=== PATIENT | male | born 1970 | race Caucasian/White ===

== ENCOUNTER 2024-06-26 00:21 | Observation (INO) ==
--- NOTE | 2024-06-26 00:21 | Emergency Department Note ---
History of Present Illness General Chief complaint: Heart Alert Stated complaint: HEART ALERT Source: patient, EMS (I did talk to EMS and gave ALS medical command prior to arrival), RN notes reviewed and old records reviewed (Old medical records were attempted to be reviewed but there are no old records at this hospital. Nurse's notes were reviewed and I agree with.) Mode of arrival: EMS Limitations: no limitations History of Present Illness Patient is a 53-year-old male with a history of cardiac disease, comes in after chest pain and nausea. He did eat a pepperoni pizza earlier. He is brought in by EMS they were concerned based on his cardiac history and his EKG changes that he was having a STEMI. They called in and talk to me and he does have ST segment elevations laterally with some reciprocal changes anteriorly. I did call the heart alert and saw the patient immediately upon arrival. The patient says his chest pain is starting to get a little bit better that he given fentanyl prior to arrival and he seems a little sleepy initially. The nausea seems to be better he is mildly short of breath there is no radiation to the back. No fall or trauma or injury he is a diabetic and his blood sugar was in the 300s in the ambulance. No focal numbness or weakness. No fall or trauma. Home Medications Medication Instructions Recorded Confirmed Type Unobtainable 06/26/24 06/26/24 History Allergies Allergy/AdvReac Type Severity Reaction Status Date / Time No Known Drug Allergies Allergy na Verified 06/26/24 03:03 Past Med/Surg History Problem List (Updated 06/26/24 @ 05:02 by Mao Rodriguez MD) Diabetes (Acute) Nausea (Acute) Hyperglycemia (Acute) Lumbar degenerative disc disease Memory loss Blindness of right eye Peripheral neuropathy Morbid obesity with BMI of 45.0-49.9, adult (Acute) Insulin-requiring or dependent type II diabetes mellitus Hyperlipidemia History of coronary artery stent placement (Acute) CAD in [place] artery STEMI (ST elevation myocardial infarction) (Acute) Social History Smoking Status: Former smoker Hx Alcohol Use: No Hx Substance Use: No Preferred Language: Cypriot Communication Ability: Effective Special Tax Auditor Required: No Beliefs That Will Affect Care: None Current Living Situation: Alone Other Information That Helps Us Care for You: No Feels Safe at Home: Yes Safety Concerns: Feels Safe At This Time Assistive Devices: Denture - Upper, Denture - Lower and Scooter/Electric Scooter Review of Systems A total of 10 systems reviewed and were otherwise negative Physical Exam Vital Signs Vital Signs - 24 hr 06/26/24 00:24 06/26/24 00:26 06/26/24 00:29 Temperature 36.8 C Temperature Source Oral Pulse Rate 100 H 99 H Respiratory Rate 17 Respiratory Effort / Characteristics Non-Labored Spontaneous Respiratory Depth Normal Respiratory Pattern Regular Blood Pressure 130/93 Blood Pressure Mean 105 Pulse Oximetry 85 L 85 L Oxygen Delivery Method Room Air Room Air Nasal Cannula Oxygen Flow Rate 0 Sepsis Recent Fever Within 48 Hours No Sepsis New/Unexplained Change in Mental Status N/A Sepsis Action Taken by Nursing No Action Required Oxygen Flow Rate - Titration 5 Pulse Oximetry Post Tiitration 97 General: Well developed well nourished in no acute distress, breathing comfortably on room air. Normal speech HEENT: Normal cephalic atraumatic. Pupils are equal round and reactive to light. Extraocular movements are intact. Oropharynx is pink with moist mucous membranes. No swelling of the mouth lips or tongue. Neck: Supple with a midline trachea. No meningeal signs or stiffness, no JVD or bruits. No Stridor. Chest: Clear to auscultation bilaterally. No wheezes or rhonchi. No increased work of breathing. Heart: Regular rate and rhythm without murmurs or gallops. Abdomen: Soft nontender, nondistended without rebound guarding or rigidity. Extremities: No cyanosis clubbing or edema. No calf tenderness or assymetry Spine/Back. Non tender to palpation. No CVA tenderness Skin: Good turgor without rashes. Neurologic exam: Cranial nerves two through 12 are intact. Motor and sensation are intact and symmetrical throughout. Course Administered Medications Discontinued Medications Clopidogrel Bisulfate (Clopidogrel Bisulfate 300 Mg Tab) Confirm Administered Dose 600 mg .ROUTE .STK-MED ONE Stop: 06/26/24 01:36 Last Admin: 06/26/24 01:40 Dose: 600 mg Documented By: RAMIREZ Fentanyl Citrate (Fentanyl Citrate Pf 100 Mcg/2 Ml Vial) Confirm Administered Dose 100 mcg .ROUTE .STK-MED ONE Stop: 06/26/24 00:21 Last Increment: 06/26/24 01:34 Dose: 25 mcg Documented By: RAMIREZ Heparin Sodium (Porcine) (Heparin (Porcine) 1000 Unit/Ml 10 Ml (Cooling Machine Operator Use Only)) Confirm Administered Dose 10,000 units .ROUTE .STK-MED ONE Stop: 06/26/24 00:21 Last Admin: 06/26/24 01:01 Dose: 8,000 units Documented By: RAMIREZ Heparin Sodium (Porcine) (Heparin (Porcine) 1000 Unit/Ml 10 Ml (Cooling Machine Operator Use Only)) Confirm Administered Dose 10,000 units .ROUTE .STK-MED ONE Stop: 06/26/24 01:09 Last Admin: 06/26/24 01:41 Dose: 4,000 units Documented By: RAMIREZ Heparin Sodium/Sodium Chloride (Heparin In Nss Infusion 1000 Unit/500 Ml (2 U/Ml) Bag) Confirm Administered Dose 3,000 units IV .STK-MED ONE Stop: 06/26/24 00:22 Last Admin: 06/26/24 01:03 Dose: 3,000 units Documented By: JL Acetaminophen (Ofirmev) 1,000 mg in 100 mls @ 400 mls/hr IV NOW STA Stop: 06/26/24 03:19 Last Infusion: 06/26/24 03:51 Dose: Infused Documented By: Admin: 06/26/24 03:30 Dose: 400 mls/hr Documented By: SUSANA Insulin Aspart (Insulin Aspart Per Unit Charge) 6 units SC NOW STA Stop: 06/26/24 02:22 Last Admin: 06/26/24 03:30 Dose: 6 units Documented By: JUDIT Co-signed By: SUSANNE Iodixanol (Iodixanol (Visipaque) 320 Mg/Ml 100ml) Confirm Administered Dose 1 ml IV .STK-MED ONE Stop: 06/26/24 00:22 Last Admin: 06/26/24 02:57 Dose: Not Given Documented By: SUSANA Ioversol (Optiray 350) Confirm Administered Dose 1 ml .ROUTE .STK-MED ONE Stop: 06/26/24 00:22 Last Admin: 06/26/24 01:39 Dose: 130 ml Documented By: JL Midazolam HCl (Midazolam Hcl 1 Mg/Ml 2ml Vial) Confirm Administered Dose 2 mg .ROUTE .STK-MED ONE Stop: 06/26/24 00:21 Last Increment: 06/26/24 01:35 Dose: 1 mg Documented By: KMS Miscellaneous Information (Patient's Allergy Info Needs Entered) 1 each N/A NOW STA Stop: 06/26/24 02:02 Last Admin: 06/26/24 03:07 Dose: 1 each Documented By: SUSANA Nicardipine HCl (Nicardipine Hcl Inj 2.5 Mg/Ml 10 Ml Amp) Confirm Administered Dose 25 mg .ROUTE .STK-MED ONE Stop: 06/26/24 00:21 Last Admin: 06/26/24 01:02 Dose: 25 mg Documented By: JL Nitroglycerin/Dextrose (Nitroglycerin/D5w 100mcg/Ml 20ml Syr) Confirm Administered Dose 2,000 mcg .ROUTE .STK-MED ONE Stop: 06/26/24 00:22 Last Admin: 06/26/24 01:04 Dose: 2,000 mcg Documented By: JL Ticagrelor (Ticagrelor 90 Mg Tab) Confirm Administered Dose 180 mg .ROUTE .STK- MED ONE Stop: 06/26/24 01:21 Last Admin: 06/26/24 02:57 Dose: Not Given Documented By: SUSANA Critical Care Time Critical Care Time: Yes Total Critical Care Time: 30 Due to the patient's chest pain, prehospital concern for STEMI with multiple EKGs done on route, discussion with paramedics as well as cardiology and the patient about his care and expedited care to get him to the Cooling Machine Operator for emergent angioplasty, I have personally spent greater than 30 minutes of critical care time in the direct management of this patient. This includes bedside care, interpretation of diagnostic studies, and testing, discussion with consultants, patient, and family members, and other required patient management activities. This 30 minutes is in excess of all separately billable procedures. Medical Decision Making Differential Diagnosis Acute coronary syndrome, arrhythmia, GI illness, infection, dissection, electrolyte or metabolic abnormality, anemia Medical Records Attestation: I reviewed the patient's medical records. Home Medications Current Medication List: was personally reviewed by me Laboratory Data Attestation: I reviewed the patient's lab results. 06/26/24 00:32 06/26/24 00:32 Lab Results 06/26/24 06/26/24 06/26/24 Range/Units 00:32 00:35 01:16 WBC 12.27 H (4.8-10.8) K/ul RBC 5.25 (4.70-6.10) M/uL Hgb 15.4 (14.0-18.0) g/dl POC Hgb 15.6 (14.0-18.0) g/dl Hct 45.1 (42.0-52.0) % POC Hct 46 (42-52) % MCV 85.9 (80.0-100.0) fL MCH 29.3 (25.0-34.0) pg MCHC 34.1 (32.0-36.0) g/dL RDW Std Deviation 40.3 (36.4-46.3) fL RDW Coeff of Aminata 13.0 (11.5-14.5) % Plt Count 259 (130-400) K/uL MPV 11.3 (9.4-12.4) fL Immature Gran % (Auto) 0.7 % Neut % (Auto) 71.9 % Lymph % (Auto) 17.8 % [place] % (Auto) 7.7 % Eos % (Auto) 1.5 % Baso % (Auto) 0.4 % Neut # (Auto) 8.81 H (1.40-6.50) K/uL Lymph # (Auto) 2.19 (1.20-3.40) K/uL [place] # (Auto) 0.95 H (0.11-0.59) K/uL Eos # (Auto) 0.19 (0.00-0.50) K/uL Baso # (Auto) 0.05 (0.00-0.20) K/uL Immature Gran # (Auto) 0.08 (0.01-0.20) K/uL Activ Coag Time Kaolin 269 H (94-140) SECONDS POC Sodium 135 (135-144) mmol/L Sodium 134 L (136-145) mmol/L POC Potassium 3.9 (3.3-5.0) mmol/L Potassium 4.0 (3.5-5.1) mmol/L POC Chloride 93 L (101-112) mmol/L Chloride 97 L (98-107) mmol/L Carbon Dioxide 30 (21-32) mmol/L POC Total CO2 29 (24-31) mmol/L Anion Gap 7 (3-11) POC Anion Gap 18.0 (16-25) mmol/L POC BUN 9 (7-18) mg/dl BUN 10 (6-23) mg/dl Creatinine 1.17 (0.6-1.4) mg/dl POC Creatinine 1.2 (0.6-1.3) mg/dl Est Cr Clr Drug Dosing 102.8 ml/min eGFR 75.01 BUN/Creatinine Ratio 8.5 L (10-20) Glucose 318 H* (70-99(Fasting)) mg/dl POC Glucose (other) 318 H (70-99) mg/dl Calcium 8.6 (8.6-10.3) mg/dl POC Ioniz Calcium Tami 1.11 L (1.12-1.32) mmol/l Total Bilirubin 0.3 (0.2-1.0) mg/dl AST 19 (13-39) U/L ALT 15 (7-52) U/L Alkaline Phosphatase 126 H (34-104) U/L Troponin I High Sens 108.4 H* (0-20) pg/ml Total Protein 6.3 (6.0-8.3) gm/dl Albumin 3.3 L (3.4-5.0) gm/dl Globulin 3.0 (2.5-4.0) gm/dl Albumin/Globulin Ratio 1.1 (0.9-2) Lipase 27 (11-82) U/L SARS-CoV-2, RNA, NAAT NEGATIVE (NEGATIVE) Imaging Data Attestation: I personally reviewed and interpreted this imaging study as follows: My Impression: Chest x-raycardiomegaly. No focal infiltrate. He will be difficult to rule out a mild congestive component. ECG Data Attestation: I personally reviewed and interpreted this ECG as follows: Indication: + chest pain Rate (beats per minute): 70 Rhythm: + normal sinus ECG Intervals/blocks: + Normal QRS, + Normal QT and + Normal [place] ECG [place]: + Normal ECG ST segments: + ST depression (Anterior) and + ST elevation ECG Findings: no PACs or no PVCs Comparison ECG Date: from (Prehospital EKG) Change: no significant change MDM Narrative This Patient comes in with chest pain based on EKG changes and history a heart alert was called prior to arrival. He arrived in room B1. I saw him immediately upon arrival we repeated the EKG here as well as labs. He appears in no respiratory distress. They did 3 EKGs en route which I looked at and show ST segment elevation laterally with reciprocal changes. Upon arrival he was a little sleepy as they just given 100 micrograms of IV fentanyl but is in no respiratory distress. EKG here shows similar changes. I-STAT was obtained and the heart alert had been called prior to arrival so Dr. Arredondo had promptly arrived shortly after the patient got here. He is going to take him to the [facility]ing Machine Operator for intervention for STEMI. Additionally his blood sugar was in the 300s on the i-STAT however he is not acidotic. I have also consulted Dr. Colindres as [facility]. Continuous cardiac monitoring: Orders placed in EMR for continuous cardiac monitoring call upon my evaluation normal sinus rhythm rate of [address] segment elevation seen on the lateral leads Impression & Plan STEMI (ST elevation myocardial infarction), History of coronary artery stent placement, Morbid obesity with BMI of 45.0-49.9, adult, Hyperglycemia, Nausea, Diabetes Discharge Plan Visit Data Chief Complaint: Heart Alert Stated Complaint: HEART ALERT ED Provider: Mao Rodriguez Discharge Problem: STEMI (ST elevation myocardial infarction), History of coronary artery stent placement, Morbid obesity with BMI of 45.0-49.9, adult, Hyperglycemia, Nausea, Diabetes Discharge Instructions Interventions: ED Discharge Assessment Last Done: 06/26/24 00:35 Discharge Problem: STEMI (ST elevation myocardial infarction) Qualifiers: Involved coronary artery: unspecified coronary artery Qualified Code(s): I21.3 - ST elevation (STEMI) myocardial infarction of unspecified site Diabetes Qualifiers: Diabetes mellitus type: type 2 Diabetes mellitus correction insulin use: u nspecified correction insulin use status Diabetes mellitus complication status: w [facility] complication Qualified Code(s): E11.9 - Type 2 diabetes mellitus without complications
--- NOTE | 2024-06-26 00:35 | Cardiac Catheterization ---
[facility] Data: Claims Representative Cardiac Status Clinical evaluation leading to the procedure CAD Presenation: STEMI Anginal Classification: CCS IV Diagnostic Physicians Name: Weston Arredondo MD Closure Device Recommendations: PCI without planned CABG Cardiac Cath Procedure Full Procedure Date June 26, 2024 Pre-Procedure Diagnosis Pre-Procedure Diagnosis: STEMI AUC Score AUC Score: 9 Post-Procedure Diagnosis Post-Procedure Diagnosis: Severe CAD, Successful PCI and Elevated Intracardiac Pressures Procedure(s) Performed Procedure(s) Performed: Coronary Angiography, Left Heart Cath and Drug Eluting Stent Wirer Street Light Weston Arredondo MD [id number] Analyst(s) Dorcas Estimated Blood Loss Estimated Blood Loss: 10 Medication(s) Medication(s): Clopidogrel, Fentanyl, Heparin, Lidocaine 1%, Nicardipine, Nitroglycerin and Versed Summary of Findings Indication: STEMI/Heart Alert Access: 6 Fr slender right radial artery Catheters: EBU 3.5 guide, diagnostic JR4 Findings: LM -normal caliber, no significant disease LAD -medium caliber, 20-30% ostial, diffuse 30 mid segment disease with focal 50% stenosis after third septal. Distal vessel without significant disease and wraps around apex. Ostial/proximal first diagonal stent acutely occluded. Circumflex -medium caliber, 30% ostial stenosis, proximal to mid stent widely patent, stent into large OM 3 widely patent. Distal AV groove circumflex without significant disease. RCA -dominant, large caliber, mid segment luminal regularities, PDA widely patent. 40% stenosis in right posterior AV branch right after takeoff of PDA. Right PLB with 60-70% proximal stenosis LVEDP -19 -- PCI -- Antithrombotic therapy: Heparin, clopidogrel Procedure: Left main cannulated with EBU 3.5 guide Finish Patcher 50 wire passed across lesion into distal vessel [place] blue wire passed into distal LAD Proximal D1 stent occlusion l dilated with 2.0 compliant balloon Unable to pass 2.5 NC balloon into stent. Eventually stent to rewired with [place] blue, commuter pilot 50 placed to distal LAD. Prior stent further dilated with 2.5 NC. Residual moderate stenosis in proximal aspect of stent. New TREE (2.25 x 23 mm Xience) placed from diagonal ostium across entire length of prior stent Stent post-dilated with 2.5 noncompliant balloon IC vasodilators administered for spasm Post procedure NEREYDA 3 flow, stent well expanded with minimal residual stenosis and no apparent cardiac complications. Arterial Closure: TR band Summary: 1. Lateral STEMI/proximal D1 stent thrombosis with 100% occlusion 2. Multivessel non-culprit coronary artery disease -40% R-PAV, 60-70% R-PLB -30% ostial circumflex, proximal/mid circumflex stents extending into OM 3 widely patent Mild diffuse mid LAD with focal 50% stenosis 3. Mildly elevated intracardiac filling pressure 4. Successful PCI of proximal 1st diagonal stent thrombosis with new overlapping TREE (2.25 x 23 mm Xience; postdilated with 2.5 NC). Recommendations: Admit to PCU for continued monitoring Loaded with clopidogrel 600 mg in Claims Representative Continue dual-antiplatelet therapy for at least 1 year. Likely extended in the setting of stent thrombosis/overlapping stents. Trend troponins until peak, Check Echo Uptitrate beta-whit/FRANCESCO as BP allows High-dose statin Consult cardiac Rehab Medical management of residual CAD. Hemodynamics Rest Ao:: 124/81/99 Final Ao: 125/81/100 LV: 120/19 Recommendations Recommendations: PCI without planned CABG Radiation Exposure (mGy) 3890 Contrast (mls) 130 Anesthesia Moderate [id number] Procedural Complication(s) None Disposition PCU I attest to the content of the Intraoperative Record and any orders documented therein. Any exceptions are noted below. [facility] Card Cath Procedure Codes Cardiac Catheterization Procedure 1: Cardiovascular Cath Procedures: 81553 Coronaries and LHC (+/-LV) Moderate Sedation Procedure 1: Sedation/Anesthesia: 93484 Mod Sedation by the same physician;Init15 Min Child Age 5 & Up Procedure 2: Sedation/Anesthesia: 72464 Mod Sedation by the same physician; Ea [id number] Minutes Stenting Procedure 1: Cardiovascular Stent Procedures: 01411 Perc transluminal revascularization of acute sub/total occl, aMI PG Care Time/CCT Total # of Minutes Spent Total Time Spent with Patient: Total time spent is greater than 50% in coordination of care (as documented) at patient's floor/unit and/or counseling patient:
--- NOTE | 2024-06-26 00:35 | Pre Anesthesia Assessment ---
Date of Service June 26, 2024 Pre Sedation Assessment Vital Signs Temp Pulse Resp BP Pulse Ox O2 Del Method O2 Flow Rate 06/26/24 00:29 85 L Room Air, Nasal Cannula 0 06/26/24 00:26 99 H 06/26/24 00:24 98.2 F 100 H 17 130/93 85 L Room Air Cardiovascular + regular rate Respiratory + respiratory effort normal Pre-Sedation Airway Assessment Smoking Status: Never smoker Hx Sleep Apnea: Yes Hx Difficult Intubation: No Short, Thick Neck: Yes Thyromental Distance: < 3.5 Finger Breadths Oral Cavity: + Dental Abnormalities Mallampati Class: III ASA: ASA4 Procedure Planning Contraindications for Sedation: none Current Medications Reviewed: Yes Notes The planned sedation has been discussed with the patient. Informed Consent was obtained. I have identified the patient, determined the appropriateness of sedation and have assessed the patient immediately prior to the procedure. All medicine(s) and interventions are by my order.
--- NOTE | 2024-06-26 00:41 | Cardiology Consultation ---
Date of Consultation June 26, 2024 Assessment & Plan (1) STEMI (ST elevation myocardial infarction): Plan Presentation consistent with lateral STEMI and recommend proceeding with emergent cardiac catheterization and likely primary PCI. No apparent contraindications to procedure. Discussed risks, benefits, alternatives of procedure with patient and they are willing to proceed. Further recommendations pending findings of coronary angiography. History of Present Illness History of Present Illness 53-year-old man here with acute chest pain and ECG concerning for acute GA. Patient seen emergently in the ED after heart alert en route. Patient reports history of coronary artery disease with prior placement of 4 stents in the setting of exertional dyspnea. Unsure when last stents were placed or where but thinks several years ago. Has a history of type 2 diabetes, morbid obesity. Non-smoker. Chest pain began 3 hours prior to arrival after eating a pepperoni sandwich. After sandwich became nauseated, followed by pain. Has never had pain like this before. ECG en route showed sinus rhythm with LVH and lateral ST elevations most notably in 1 and aVL. Given nitro and fentanyl by EMS. At time of arrival patient sleepy, reports minimal residual chest pain. Hemodynamically stable. EKG again showed lateral elevations. Home Medications Medication Instructions Recorded Confirmed Type Unobtainable 06/26/24 06/26/24 History Patient History Social History Smoking Status: Never smoker Preferred Language: Belarusian Feels Safe at Home: Yes Review of Systems Review of Systems: Other Not obtained in setting of emergent situation Physical Exam Physical Exam: General: sleepy, comfortable HEENT: Sclerae anicteric Lungs: Clear to auscultation anteriorly Cardiac: Regular rate and rhythm, no murmurs. Vascular: 2+ radial pulse, diminished RT DRILLING MANAGER pulse Abdomen: Soft, nontender Extremities: Well perfused, no peripheral edema. Multiple skin tears over legs Neuro: Nonfocal Results & Data Vital Signs (Past 12 Hours) Vital Signs Temp Pulse Resp BP Pulse Ox O2 Del Method O2 Flow Rate 06/26/24 00:29 85 L Room Air, Nasal Cannula 0 06/26/24 00:26 99 H 06/26/24 00:24 98.2 F 100 H 17 130/93 85 L Room Air PG Care Time/CCT Total # of Minutes Spent Total Time Spent with Patient: Total time spent is greater than 50% in coordination of care (as documented) at patient's floor/unit and/or counseling patient: Coding Level of Care Code 66235 ER DEPT VISIT MOD LVL 4 Diagnoses STEMI (ST elevation myocardial infarction) I21.3
[2024-06-26 00:47] LABS: iSTAT Creatinine 1.2 mg/dl (0.6-1.3); iSTAT Hemoglobin 15.6 g/dl (14.0-18.0); iSTAT Ionized Calcium 1.11 mmol/l (1.12-1.32); iSTAT Potassium 3.9 mmol/L (3.3-5.0)
[2024-06-26 00:58] LABS: Basophils # (auto) 0.05 K/uL (0.00-0.20); Basophils % (auto) 0.4 %; Eosinophils # (auto) 0.19 K/uL (0.00-0.50); Eosinophils % (auto) 1.5 %; Hematocrit (blood only) 45.1 % (42.0-52.0); Hemoglobin 15.4 g/dl (14.0-18.0); Immature Granulocytes # (auto) 0.08 K/uL (0.01-0.20); Immature Granulocytes % (auto) 0.7 %; Lymphocytes # (auto) 2.19 K/uL (1.20-3.40); Lymphocytes % (auto) 17.8 %; Mean Corpuscular Hemoglobin 29.3 pg (25.0-34.0); Mean Corpuscular Hgb Conc 34.1 g/dL (32.0-36.0); Mean Corpuscular Volume 85.9 fL (80.0-100.0); Mean Platelet Volume 11.3 fL (9.4-12.4); Monocytes # (auto) 0.95 K/uL (0.11-0.59); Monocytes % (auto) 7.7 %; Neutrophils # (auto) 8.81 K/uL (1.40-6.50); Neutrophils % (auto) 71.9 %; Platelet Count 259 K/uL (130-400); RDW Standard Deviation 40.3 fL (36.4-46.3); Red Blood Count 5.25 M/uL (4.70-6.10); White Blood Count 12.27 K/ul (4.8-10.8)
[2024-06-26] MEDS: HEPARIN (PORCINE) 1000 UNIT/ML 10 ML (CATH LAB USE ONLY) ONE ×2 (01:01→01:41)
[2024-06-26] MEDS: niCARdipine HCL INJ 2.5 MG/ML 10 ML AMP ONE (01:02)
[2024-06-26] MEDS: NITROGLYCERIN/D5W 100MCG/ML 20ML SYR ONE (01:04)
[2024-06-26 01:12] LABS: Albumin Globulin Ratio 1.1 (0.9-2); Albumin Level 3.3 gm/dl (3.4-5.0); BUN Creatinine Ratio 8.5 (10-20); Bilirubin,Total 0.3 mg/dl (0.2-1.0); Calcium 8.6 mg/dl (8.6-10.3); Creatinine Clr Calc Pharmacy 102.8 ml/min; Total Protein 6.3 gm/dl (6.0-8.3)
[2024-06-26 01:18] LABS: Troponin I High Sensitivity 108.4 pg/ml (0-20)
[2024-06-26] MEDS: fentaNYL citrate PF 100 MCG/2 ML VIAL ONE (01:34)
[2024-06-26] MEDS: MIDAZOLAM HCL 1 MG/ML 2ML VIAL ONE (01:35)
[2024-06-26] MEDS: OPTIRAY 350 ONE (01:39)
[2024-06-26] MEDS ORDERED: ONDANSETRON INJ 2 MG/ML 2 ML VIAL IV PRN (01:40)
[2024-06-26] MEDS: CLOPIDOGREL BISULFATE 300 MG TAB ONE (01:40)
[2024-06-26] MEDS ORDERED: DEXTROSE 50% 50 ML SYRINGE IV PRN (02:16)
[2024-06-26] MEDS ORDERED: GLUCAGON FOR INJ 1 MG VIAL SQ PRN (02:16)
[2024-06-26] MEDS ORDERED: GLUCOSE 40% GEL 15 GM TUBE PO PRN (02:16)
[2024-06-26] MEDS ORDERED: CARBOHYDRATES FOR HYPOGLYCEMIA PO PRN (02:16)
[2024-06-26] MEDS ORDERED: GLUCOSE 10 TAB/TUBE PO PRN (02:16)
--- NOTE | 2024-06-26 02:48 | History & Physical Report ---
Date of Service June 26, 2024 Assessment & Plan (1) STEMI (ST elevation myocardial infarction): (2) CAD in [place] artery: (3) History of coronary artery stent placement: (4) Hyperlipidemia: (5) Insulin-requiring or dependent type II diabetes mellitus: (6) Morbid obesity with BMI of 45.0-49.9, adult: (7) Peripheral neuropathy: (8) Blindness of right eye: (9) Memory loss: (10) Lumbar degenerative disc disease: Plan STEMI with elevated troponin/CAD/history of first diagonal stent/hypertension- Heart alert was called by the ED upon review of external EKG prior to arrival, which showed ST segment elevations in lateral leads Patient underwent emergent cardiac catheterization by Dr. Weston Arredondo, which revealed an occluded stent in the first diagonal, which was treated with 1 new overlapping stent, with resolution of symptoms. Patient then transferred to PCU telemetry on the following medications: Aspirin 81 mg every morning Clopidogrel 75 mg every morning, Atorvastatin 80 mg every morning Patient has previously been on medications for blood pressure, however, does not remember the names or dosages Patient does remember having a previous cardiac catheterization, however, does not remember when and what was done Hyperlipidemia- Patient empirically placed on atorvastatin 80 mg every morning Fasting lipid panel ordered for the a.m. Patient remembers that he was on a statin, but does not remember the name or the dose Diabetes mellitus- Change insulin glargine from 44 units subcu twice daily to 34 units subcu twice daily while in hospital. His last dose was at about 8:15 p.m. on 06/25 He does use Humalog for coverage, but does not use a firm scale Place on Accu-Cheks with NovoLog SSI Hemoglobin A1c is ordered Lumbar degenerative disc disease/history of lumbar surgery for slipped disc/peripheral neuropathy- Patient reports that he has been on gabapentin in the past, but it was discontinued for unknown reasons Morbid obesity- BMI 44.8 Will need to be addressed for ongoing health concern issues Memory loss- Patient has slow responses to most questions, and does not remember medications that he has been on other than the dosings of insulin glargine as noted Unknown if there is any element of cognitive impairment The emergency department at [facility] has been contacted by the [facility] emergency department. Unfortunately, there was no one there who can access his previous records, and there is reportedly someone to be there after 8 AM The emergency department there will need to be contacted, to obtain previous records Admission and Anticipated Discharge Date Admission Date: June 26, 2024 History of Present Illness Chief Complaint: The patient presented to the emergency department with the development of chest pain and nausea and occurred after eating pepperoni pizza earlier in the day. He was brought in by EMS, who called ahead to the emergency department due to concerns regarding his cardiac history, and abnormal EKG concerning for a STEMI. Heart alert was called in anticipation of his arrival, and upon arrival he was seen by emergency department personnel, and was taken quickly to the cardiac cath suite by Dr. Weston Arredondo. Primary Care Provider: NO PCP The patient is a 53-year-old male with a past medical history including CAD with history of coronary artery stent, hypertension, hyperlipidemia, diabetes mellitus on chronic insulin, GPN, morbid obesity, and memory loss issues. He presented to the emergency department with symptoms as noted above, laboratories ordered and chest x-ray performed, and was quickly taken to cardiac [employer] for assessment. He was noted to have occluded stent his first diagonal, and got 1 new overlapping stents, with resolution of pain symptoms. He was then sent to PCU telemetry, and admitted. The patient's HPI and ROS are somewhat limited due to memory loss issues, which appear to be chronic. Of note, the patient has reportedly been seen through the [facility] system at [facility], which had been contacted by [facility] emergency department, and there was verification that he had been seen at the hospital. There is no one available this evening to transfer records, however, they will need to be contacted after 8:00 in the morning, for transfer records. Medications the patient is aware of the dosing that he takes, is his insulin glargine, dose 44 units subcu twice daily. He does take Humalog, however, he does not use a routine scale for coverage. Home Medications Medication Instructions Recorded Confirmed Type Unobtainable 06/26/24 06/26/24 History Past Med/Surg History Problem List (Updated 06/26/24 @ 02:35 by Alirio Pinedo MD) Lumbar degenerative disc disease Memory loss Blindness of right eye Peripheral neuropathy Morbid obesity with BMI of 45.0-49.9, adult Insulin-requiring or dependent type II diabetes mellitus Hyperlipidemia History of coronary artery stent placement CAD in [place] artery STEMI (ST elevation myocardial infarction) Social History Smoking Status: Never smoker Preferred Language: Korean Feels Safe at Home: Yes Review of Systems Review of Systems: The patient denies chest pain after getting the new stent, palpitations, shortness of breath, dyspnea on exertion, lower extremity swelling, sore throat, fevers, chills, sweats, nausea, vomiting, diarrhea , constipation, abdominal pain, pelvic pain, blood in urine or stool, dysuria, urinary frequency or urgency, lightheadedness, dizziness, headache, memory loss, loss of consciousness, rash, abnormal bruising or bleeding, imbalance, focal or generalized weakness, numbness or tingling in arms or legs, generalized arthralgias or myalgias, back or neck pain, or night sweats. The review of systems is otherwise negative other than for that already noted above, and at least 10 systems have been reviewed. Physical Exam Physical Exam: The patient is awake, alert and oriented 3, well developed and well nourished, normocephalic and atraumatic, lying in bed and in no acute distress. HEENT--PERRL, EOMI, mucous membranes and oropharynx normal Neck--supple. No JVD. No bruits. Thyroid normal, trachea midline, no adenopathy. Heart--normal S1 and S2. No murmurs, rubs or gallops. Lungs--decreased breath sounds throughout. No respiratory distress, no accessory muscle use. Abdomen--normal bowel sounds and soft. Nontender. Nondistended. Mildly tympanitic. Extremities--No edema. Dermatologic--normal skin turgor, normal color Neurologic--cranial nerves II through XII grossly intact. Rheumatologic--normal range of motion. Psychiatric--normal affect. Results & Data Results & Data Vital Signs (Past 12 Hours) Vital Signs Temp Pulse Resp BP Pulse Ox O2 Del Method O2 Flow Rate 06/26/24 00:29 85 L Room Air, Nasal Cannula 0 06/26/24 00:26 99 H 06/26/24 00:24 36.8 C 100 H 17 130/93 85 L Room Air Laboratory Results Laboratory Results WBC 12.27 K/ul (4.8-10.8) H 06/26/24 00:32 RBC 5.25 M/uL (4.70-6.10) 06/26/24 00:32 Hgb 15.4 g/dl (14.0-18.0) 06/26/24 00:32 POC Hgb 15.6 g/dl (14.0-18.0) 06/26/24 00:35 Hct 45.1 % (42.0-52.0) 06/26/24 00:32 POC Hct 46 % (42-52) 06/26/24 00:35 MCV 85.9 fL (80.0-100.0) 06/26/24 00:32 MCH 29.3 pg (25.0-34.0) 06/26/24:32 MCHC 34.1 g/dL (32.0-36.0) 06/26/24 00:32 RDW Std Deviation 40.3 fL (36.4-46.3) 06/26/24 00: RDW Coeff of Aminata 13.0 % (11.5-14.5) 06/26/24 00:32 Plt Count 259 K/uL (130-400) 06/26/24 00:32 MPV 11.3 fL (9.4-12.4) 06/26/24 00:32 Immature Gran % (Auto) 0.7 % 06/26/24 00:32 Neut % (Auto) 71.9 % 06/26/24 00:32 Lymph % (Auto) 17.8 % 06/26/24 00:32 Beckham % (Auto) 7.7 % 06/26/24:32 Eos % (Auto) 1.5 % 06/26/24 00:32 Baso % (Auto) 0.4 % 06/26/24 00:32 Neut # (Auto) 8.81 K/uL (1.40-6.50) H 06/26/24 00:32 Lymph # (Auto) 2.19 K/uL (1.20-3.40) 06/26/24 00:32 Beckham # (Auto) 0.95 K/uL (0.11-0.59) H 06/26/24 00:32 Eos # (Auto) 0.19 K/uL (0.00-0.50) 06/26/24 00:32 Baso # (Auto) 0.05 K/uL (0.00-0.20) 06/26/24 00:32 Immature Gran # (Auto) 0.08 K/uL (0.01-0.20) 06/26/24 00:32 Activ Coag Time Kaolin 269 SECONDS (94-140) H 06/26/24 01:16 POC Sodium 135 mmol/L (135-144) 06/26/24 00:35 Sodium 134 mmol/L (136-145) L 06/26/24 00:32 POC Potassium 3.9 mmol/L (3.3-5.0) 06/26/24 00:35 Potassium 4.0 mmol/L (3.5-5.1) 06/26/24 00:32 POC Chloride 93 mmol/L (101-112) L 06/26/24 00:35 Chloride 97 mmol/L (98-107) L 06/26/24 00:32 Carbon Dioxide 30 mmol/L (21-32) 06/26/24 00:32 POC Total CO2 29 mmol/L (24-31) 06/26/24 00:35 Anion Gap 7 (3-11) 06/26/24 00:32 POC Anion Gap 18.0 mmol/L (16-25) 06/26/24 00:35 POC BUN 9 mg/dl (7-18) 06/26/24 00:35 BUN 10 mg/dl (6-23) 06/26/24 00:32 Creatinine 1.17 mg/dl (0.6-1.4) 06/26/24 00:32 POC Creatinine 1.2 mg/dl (0.6-1.3) 06/26/24 00:35 Est Cr Clr Drug Dosing 102.8 ml/min 06/26/24 00:32 eGFR 75.01 06/26/24 00:32 BUN/Creatinine Ratio 8.5 (10-20) L 06/26/24 00:32 Glucose 318 mg/dl (70-99(Fasting)) H* 06/26/24 00:32 POC Glucose 281 mg/dl (70-99) H 06/26/24 02:06 POC Glucose (other) 318 mg/dl (70-99) H 06/26/24 00:35 Calcium 8.6 mg/dl (8.6-10.3) 06/26/24 00:32 POC Ioniz Calcium Tami 1.11 mmol/l (1.12-1.32) L 06/26/24 00:35 Total Bilirubin 0.3 mg/dl (0.2-1.0) 06/26/24 00:32 AST 19 U/L (13-39) 06/26/24 00:32 ALT 15 U/L (7-52) 06/26/24 00:32 Alkaline Phosphatase 126 U/L (34-104) H 06/26/24 00:32 Troponin I High Sens 108.4 pg/ml (0-20) H* 06/26/24 00:32 Total Protein 6.3 gm/dl (6.0-8.3) 06/26/24 00:32 Albumin 3.3 gm/dl (3.4-5.0) L 06/26/24 00:32 Globulin 3.0 gm/dl (2.5-4.0) 06/26/24 00:32 Albumin/Globulin Ratio 1.1 (0.9-2) 06/26/24 00:32 Lipase 27 U/L (11-82) 06/26/24 00:32 SARS-CoV-2, RNA, NAAT NEGATIVE (NEGATIVE) 06/26/24 00:32 Code Status & VTE Plan Code Status Full code VTE Prophylaxis Plan VTE Prophylaxis will be ordered: Yes PG Care Time/CCT Total # of Minutes Spent Total Time Spent with Patient: Total time spent is greater than 50% in coordination of care (as documented) at patient's floor/unit and/or counseling patient: Coding Level of Care Code 42128 INT INP/OBS CARE 3/75MIN Diagnoses STEMI (ST elevation myocardial infarction) I21.3 CAD in [place] artery I25.10 History of coronary artery stent placement Z95.5 Hyperlipidemia E78.5 Insulin-requiring or dependent type II diabetes mellitus E11.9; Z79.4 Morbid obesity with BMI of 45.0-49.9, adult E66.01; Z68.42 Peripheral neuropathy G62.9 Blindness of right eye H54.40 Memory loss R41.3 Lumbar degenerative disc disease M51.369
[2024-06-26] MEDS: IODIXANOL (VISIPAQUE) 320 MG/ML 100ML IV ONE (02:57)
[2024-06-26] MEDS: TICAGRELOR 90 MG TAB ONE (02:57)
[2024-06-26] MEDS: Patient's ALLERGY Info needs ENTERED STA (03:07)
[2024-06-26] MEDS: ACETAMINOPHEN 1,000 MG/100 ML VIAL IV STA (03:30)
[2024-06-26] MEDS: INSULIN ASPART PER UNIT CHARGE SC STA (03:30)
--- NOTE | 2024-06-26 06:52 | XRay Report ---
SUPINE PORTABLE AP CHEST RADIOGRAPH CLINICAL HISTORY: Chest pain, nonspecific COMPARISON STUDY: No previous studies for comparison. FINDINGS: No pneumothorax or pleural effusion is identified on supine exam. There is no consolidation . Pulmonary vascular congestion is noted. There is mild enlargement of the cardiac silhouette. Promin ence of mediastinal contours is accentuated on supine exam. IMPRESSION: Cardiomegaly with pulmonary vascular congestion. ACT 112: Negative or not required by law. Electronically signed by: Martin Boyce M.D. 06/26/2024 6:50 AM
[2024-06-26] MEDS ORDERED: MoRPHine SULFATE 4 MG/ML 1 ML CARP\\VIAL IV PRN (07:33)
[2024-06-26] MEDS: NITROGLYCERIN SL 0.4 MG/TAB TAB SL PRN (07:47)
[2024-06-26 08:06] LABS: Basophils # (auto) 0.06 K/uL (0.00-0.20); Basophils % (auto) 0.6 %; Eosinophils # (auto) 0.12 K/uL (0.00-0.50); Eosinophils % (auto) 1.1 %; Hematocrit (blood only) 44.8 % (42.0-52.0); Hemoglobin 15.6 g/dl (14.0-18.0); Immature Granulocytes # (auto) 0.08 K/uL (0.01-0.20); Immature Granulocytes % (auto) 0.7 %; Mean Corpuscular Hemoglobin 29.8 pg (25.0-34.0); Mean Corpuscular Hgb Conc 34.8 g/dL (32.0-36.0); Mean Corpuscular Volume 85.5 fL (80.0-100.0); Mean Platelet Volume 11.1 fL (9.4-12.4); Monocytes # (auto) 0.86 K/uL (0.11-0.59); Monocytes % (auto) 7.9 %; Neutrophils # (auto) 7.12 K/uL (1.40-6.50); Neutrophils % (auto) 65.7 %; Platelet Count 254 K/uL (130-400); RDW Coefficient of Variation 13.1 % (11.5-14.5); RDW Standard Deviation 40.3 fL (36.4-46.3); Red Blood Count 5.24 M/uL (4.70-6.10); White Blood Count 10.84 K/ul (4.8-10.8)
[2024-06-26] MEDS: ATORVASTATIN 40 MG TAB PO SCH (08:14)
[2024-06-26] MEDS: PANTOprazole 40 MG TAB PO SCH (08:14)
[2024-06-26] MEDS: ASPIRIN 81 MG ECTAB PO SCH (08:14)
[2024-06-26] MEDS: INSULIN ASPART PER UNIT CHARGE SC SCH (08:19)
[2024-06-26] MEDS: LANTUS PER UNIT CHARGE SQ SCH (08:19)
[2024-06-26 08:25] LABS: BUN Creatinine Ratio 9.3 (10-20); Chol HDL Ratio 3.1 (0-5); Creatinine Clr Calc Pharmacy 107.9 ml/min; Potassium 4.4 mmol/L (3.5-5.1)
--- NOTE | 2024-06-26 10:09 | XCELERA ---
[id number]
[2024-06-26 10:20] LABS: Estimated Average Glucose 214 mg/dl; Hemoglobin A1C 9.1 % (4.5-5.6)
--- NOTE | 2024-06-26 11:13 | Electrocardiogram Report ---
Test Reason : Blood Pressure : */* mmHG Vent. Rate : 98 BPM Atrial Rate : 98 BPM P-R Int : 178 ms QRS Dur : 118 ms QT Int : 396 ms P-R-T Axes : 69 -73 59 degrees QTcB Int : 505 ms Normal sinus rhythm Left atrial enlargement Right bundle branch block Left anterior fascicular block Bifascicular block Minimal voltage criteria for LVH, may be normal variant ( R in aVL ) ST elevation consider lateral injury or acute infarct ACUTE [place] / STEMI Abnormal ECG No previous ECGs available Confirmed by Kishan Leal ([id number]) on 06/26/2024 11:13:04 AM Referred By: REFERRED SELF Confirmed By: Kishan Leal
--- NOTE | 2024-06-26 11:14 | Electrocardiogram Report ---
Test Reason : Blood Pressure : */* mmHG Vent. Rate : 86 BPM Atrial Rate : 86 BPM P-R Int : 186 ms QRS Dur : 106 ms QT Int : 402 ms P-R-T Axes : 68 -83 69 degrees QTcB Int : 481 ms Normal sinus rhythm Low voltage QRS Left anterior fascicular block Prolonged QT Abnormal ECG When compared with ECG of 26-Jun-2024 00:26, (unconfirmed) Significant changes have occurred Confirmed by Kishan Leal ([id number]) on 06/26/2024 11:13:37 AM Referred By: REFERRED SELF Confirmed By: Kishan Leal
--- NOTE | 2024-06-26 15:03 | Cardiology Progress Note ---
Date of Service June 26, 2024 Assessment & Plan (1) CAD in [place] artery: Plan: Post PCI with new TREE to first diagonal stent thrombosis 06/26/2024 Moderate to severe nonculprit disease (60% right PLB, 50% mid LAD, 30% ostial LCx, LCx into OM 3 stents patent) 2. Preserved LV functionanterolateral wall motion abnormality 3. Type 2 [id number] 9.1 4. Mildly dilated aortic root/ascending aorta (4.1 cm) 5. Hypertension Chest pain-free currently Electrically stable Preserved LV function on echo and no signs of heart failure on exam No access site complications Trend troponin until peak Continue DAPT with aspirin, clopidogrel Continue current statin Start losartan 25 mg daily Contacted his PCPs office to fax home meds Up walking in the halls today. If remains chest pain-free with ambulation and troponin downtrending okay with discharge late this afternoon or tomorrow morning Will arrange follow-up with cardiology in [place] in 2 weeks. Admission and Anticipated Discharge Date Admission Date: June 26, 2024 Subjective Feeling well this afternoon. Denies any chest pain currently. Primarily bothered by URI symptoms including runny nose/sneezing. Also reports some belching. Telemetry reviewedsinus rhythm, no events. Review of Systems Review of Systems: All systems reviewed & are unremarkable except as noted in HPI & below Physical Exam Physical Exam: General: Comfortable, sitting up edge of bed HEENT: Sclerae anicteric Lungs: Clear to auscultation bilaterally Cardiac: Regular rate and rhythm, no murmurs. Vascular: Right radial artery access site with no ecchymosis, hematoma. Distal pulse and sensation intact. Abdomen: Soft, nontender Extremities: Well perfused, no peripheral edema. Multiple skin tears over legs Neuro: Nonfocal Results & Data Vital Signs (Past 12 Hours) Vital Signs Temp Pulse Pulse Resp BP Pulse Ox O2 Del Method 06/26/24 11:41 97.9 F 92 H 18 149/78 H 95 Room Air 06/26/24 07:49 97.7 F 96 H 20 134/83 93 Room Air 06/26/24 07:30 Room Air 06/26/24 07:15 95 H PG Care Time/CCT Total # of Minutes Spent Total Time Spent with Patient: Total time spent is greater than 50% in coordination of care (as documented) at patient's floor/unit and/or counseling patient: Coding Level of Care Code 97727 SUB INP/OBS CARE 50MIN Diagnoses CAD in [place] artery I25.10
--- NOTE | 2024-06-26 15:44 | Hospitalist Progress Note ---
Date of Service June 26, 2024 Assessment & Plan (1) STEMI (ST elevation myocardial infarction): Plan: Presented with chest pain and nausea that occurred after eating pepperoni pizza earlier in the day. Heart alert was called by the ED upon review of external EKG prior to arrival, which showed ST segment elevations in lateral leads - Patient underwent emergent cardiac catheterization by Dr. Weston Arredondo, which revealed an occluded stent in the first diagonal, which was treated with 1 new overlapping stent, with resolution of symptoms - Echo revealed preserved LV function, EF 50-55% - Trend troponin until peak - Lipid panel WNL other than triglycerides borderline high - A1c elevated at 9.1% - follow-up with PCP on discharge for diabetic control - Follow-up outpatient with cardiology in 2 weeks after discharge - Continue DAPT with aspirin 81 mg and clopidogrel 75 mg daily - Continue atorvastatin 80 mg daily - Continue losartan 25 mg daily - Reviewed telemetry monitoring -- NSR, no events - If troponin downtrends and patient remains chest pain-free with ambulation, anticipate discharge 06/27/24 (2) Insulin-requiring or dependent type II diabetes mellitus: Plan: Change insulin glargine from 44 units subcu twice daily to 34 units subcu twice daily while in hospital. His last dose was at about 8:15 p.m. on 06/25 He does use Humalog for coverage, but does not use a firm scale Place on Accu-Cheks with NovoLog SSI Hemoglobin A1c 9.1% (3) Memory loss: Plan: Patient has slow responses to most questions, and does not remember medications that he has been on other than the dosings of insulin glargine as noted Unknown if there is any element of cognitive impairment Plan Nurse navigator has requested medical records from [facility] CODE STATUS: Full code Dispo: If troponin downtrends and patient remains chest pain-free with ambulation, anticipate discharge 06/27 Admission and Anticipated Discharge Date Admission Date: June 26, 2024 Subjective Patient seen and evaluated at bedside. He had reported 3/10 chest pain this morning, which resolved after sublingual nitro. He has 0/10 chest pain at the time my evaluation. He reports that he is tired today due to his disrupted sleep last night. He denies any chest pain, palpitations, shortness of breath, difficulty breathing, lightheadedness, dizziness. Reviewed telemetry monitoring, no events noted. No additional complaints or concerns at this time. Physical Exam Physical Exam: General: No acute distress, nondiaphoretic, well-developed, well-nourished. Morbid obesity with BMI of 44.8 Skin: Warm, dry, extremities well-perfused, no peripheral edema. Multiple skin tears noted on lower extremities. Cardiac: Regular rate and rhythm without murmurs gallops or rubs. Pulm: Clear to auscultation bilaterally without wheezes, rales or rhonchi. No respiratory distress. 95% on room air. Abdominal: Soft, nontender, nondistended. Bowel sounds present. Neuro: A&O x3. No focal neurological deficits. Results & Data Results & Data Vital Signs (Past 12 Hours) Vital Signs Temp Pulse Pulse Resp BP Pulse Ox O2 Del Method 06/26/24 11:41 97.9 F 92 H 18 149/78 H 95 Room Air 06/26/24 07:49 97.7 F 96 H 20 134/83 93 Room Air 06/26/24 07:30 Room Air 06/26/24 07:15 95 H Laboratory Results Reviewed CBC Reviewed CMP Reviewed lipid panel Diagnostic Findings Reviewed echocardiogram Interpretation summary 1. Normal LV size. Mild concentric LVH. 2. LVEF 50-55%. Mid to apical anterolateral moderate to severe hypokinesis. 3. Normal RV size and function. 4. No significant valvular pathology. 5. Mildly dilated aortic root/ascending aorta (4.1 cm). 6. No prior studies for comparison. PG Care Time/CCT Total # of Minutes Spent Total Time Spent with Patient: Total time spent is greater than 50% in coordination of care (as documented) at patient's floor/unit and/or counseling patient: Coding Level of Care Code 69067 SUB INP/OBS CARE 2/35MIN Diagnoses STEMI (ST elevation myocardial infarction) I21.3 Involved coronary artery: unspecified coronary artery Insulin-requiring or dependent type II diabetes mellitus E11.9; Z79.4 Memory loss R41.3 (1) STEMI (ST elevation myocardial infarction) Involved coronary artery: unspecified coronary artery Qualified Code(s): I2 1.3 - ST elevation (STEMI) myocardial infarction of unspecified site
[2024-06-26] MEDS: CLOPIDOGREL BISULFATE 75 MG TAB PO SCH (16:33)
[2024-06-26] MEDS: LOSARTAN POTASSIUM 25 MG TAB PO SCH (16:33)
[2024-06-26] MEDS: MELATONIN 3 MG TAB PO PRN (21:37)
[2024-06-27] MEDS: MoRPHine SULFATE 2 MG/ML CARP IV PRN (00:59)
[2024-06-27 08:02] VITALS: PULSE 83; RESP 16; TEMP 97.9; O2SAT 94
[2024-06-27 08:24] LABS: Basophils # (auto) 0.06 K/uL (0.00-0.20); Basophils % (auto) 0.6 %; Eosinophils # (auto) 0.24 K/uL (0.00-0.50); Eosinophils % (auto) 2.5 %; Hematocrit (blood only) 47.1 % (42.0-52.0); Hemoglobin 15.9 g/dl (14.0-18.0); Immature Granulocytes # (auto) 0.06 K/uL (0.01-0.20); Immature Granulocytes % (auto) 0.6 %; Lymphocytes # (auto) 2.33 K/uL (1.20-3.40); Mean Corpuscular Hemoglobin 29.4 pg (25.0-34.0); Mean Corpuscular Hgb Conc 33.8 g/dL (32.0-36.0); Mean Corpuscular Volume 87.2 fL (80.0-100.0); Mean Platelet Volume 11.3 fL (9.4-12.4); Monocytes # (auto) 0.84 K/uL (0.11-0.59); Monocytes % (auto) 8.6 %; Neutrophils # (auto) 6.19 K/uL (1.40-6.50); Neutrophils % (auto) 63.7 %; Platelet Count 248 K/uL (130-400); RDW Coefficient of Variation 13.1 % (11.5-14.5); White Blood Count 9.72 K/ul (4.8-10.8)
[2024-06-27 08:43] LABS: BUN Creatinine Ratio 6.7 (10-20); Calcium 8.7 mg/dl (8.6-10.3); Creatinine Clr Calc Pharmacy 108.7 ml/min
[2024-06-27 13:30] VITALS: BP 127/87
--- NOTE | 2024-06-27 13:34 | Discharge Summary ---
Discharge Summary Date of Service June 27, 2024 Principal Dx & Hospital Course #1 = Principal Diagnosis (1) STEMI (ST elevation myocardial infarction): Presented with chest pain and nausea that occurred after eating pepperbryce pizza earlier in the day. Heart alert was called by the ED upon review of external EKG prior to arrival, which showed ST segment elevations in lateral leads - Patient underwent emergent cardiac catheterization by Dr. Weston Arredondo, which revealed an occluded stent in the first diagonal, which was treated with 1 new overlapping stent, with resolution of symptoms - Echo revealed preserved LV function, EF 50-55% [place] [address], downtrended - Reviewed telemetry monitoring -- NSR, no events - Lipid panel WNL other than triglycerides borderline high - A1c elevated at 9.1% - follow-up with PCP on discharge - Follow-up outpatient with cardiology in 2 weeks after discharge - Continue DAPT with aspirin 81 mg and clopidogrel 75 mg daily - Continue atorvastatin 80 mg daily - Continue losartan 25 mg daily (2) Insulin-requiring or dependent type II diabetes mellitus: Hemoglobin A1c 9.1% Used SSI while hospitalized Did call patient's pharmacy, who reported patient is prescribed the following regimen: Trulicity 0.75 mg weekly, Humalog 10 units with breakfast/lunch, Humalog 15 units with dinner, Lantus 42 units twice daily, Jardiance 10 mg daily > Unclear which/if any of these medications Mr. Guy takes consistently. Will defer adjustments to his regimen to his PCP Close follow-up with PCP for diabetic control -- patient reports PCP appointment scheduled for 06/30/24 (3) Memory loss: Patient has slow responses to most questions, unknown if there is any element of cognitive impairment Plan CODE STATUS: Full code Notes For Next Care Provider Patient was found to have lateral STEMI, post PCI with new TREE to first diagonal stent thrombus on 06/26/2024. Resolution in chest pain after procedure, troponin down trended, telemetry monitoring revealed normal sinus rhythm with no events. A1c elevated at 9.1%. Called patient's pharmacy who reported his prescribed regimen. Seems doubtful that patient is adhering to this regimen given his A1c. Will defer adjustments to his regimen to PCP. Recommend close outpatient follow-up with PCP -- patient reports he has a PCP appointment scheduled for 06/30/24. Medication Changes From Visit Started DAPT with aspirin 81 mg and clopidogrel 75 mg daily Started atorvastatin 80 mg daily Started losartan 25 mg daily Sublingual nitro as needed for chest pain Protonix 40 mg daily Admission HPI Per Admitting Provider The patient is a 53-year-old male with a past medical history including CAD with history of coronary artery stent, hypertension, hyperlipidemia, diabetes mellitus on chronic insulin, GPN, morbid obesity, and memory loss issues. He presented to the emergency department with symptoms as noted above, laboratories ordered and chest x-ray performed, and was quickly taken to cardiac Filing Writer for assessment. He was noted to have occluded stent his first diagonal, and got 1 new overlapping stents, with resolution of pain symptoms. He was then sent to PCU telemetry, and admitted. The patient's HPI and ROS are somewhat limited due to memory loss issues, which appear to be chronic. Of note, the patient has reportedly been seen through the [facility] system at [facility], which had been contacted by [facility] emergency department, and there was verification that he had been seen at the hospital. There is no one available this evening to transfer records, however, they will need to be contacted after 8:00 in the morning, for transfer records. Medications the patient is aware of the dosing that he takes, is his insulin gl argine, dose 44 units subcu twice daily. He does take Humalog, however, he does not use a routine scale for coverage. Admission Exam Per Admitting Provider The patient is awake, alert and oriented 3, well developed and well nourished, normocephalic and atraumatic, lying in bed and in no acute distress. HEENT--PERRL, EOMI, mucous membranes and oropharynx normal Neck--supple. No JVD. No bruits. Thyroid normal, trachea midline, no adenopathy. Heart--normal S1 and S2. No murmurs, rubs or gallops. Lungs--decreased breath sounds throughout. No respiratory distress, no accessory muscle use. Abdomen--normal bowel sounds and soft. Nontender. Nondistended. Mildly tympanitic. Extremities--No edema. Dermatologic--normal skin turgor, normal color Neurologic--cranial nerves II through XII grossly intact. Rheumatologic--normal range of motion. Psychiatric--normal affect. Discharge Exam General: No acute distress, nondiaphoretic, well-developed, well-nourished. Morbid obesity with BMI of 44.8 Skin: Warm, dry, extremities well-perfused, no peripheral edema. Multiple skin tears noted on lower extremities. Cardiac: Regular rate and rhythm without murmurs gallops or rubs. Pulm: Clear to auscultation bilaterally without wheezes, rales or rhonchi. No respiratory distress. 94% on room air. Abdominal: Soft, nontender, nondistended. Bowel sounds present. Neuro: A&O x3. No focal neurological deficits. Discharge Plan Discharge Items Patient Disposition: Home - Self-Care Reason For Visit: ACS Discharge Diagnosis: STEMI s/p PCI with TREE Activity: Per Instructions section Non-emergency contact: Primary Care Provider and Physiology Teacher Call non-emergency contact if: you have any medication questions and your symptoms worsen Follow-up/Referrals: [facility] [Outside Practitioners] - (Follow-up in 1 week) PCP,NO [Primary Care Provider] - Diet: Carb Consistent or DM2 and Heart Healthy Addtl Attending Provider Instructions: Mr. Guy, You were admitted to the hospital due to a heart attack. You had an emergent cardiac catheterization with Dr. Arredondo where he placed a new stent. Your chest pain resolved after this. You were on a heart monitor throughout your hospitalization and have remained in a normal sinus rhythm. You have been started on some new medications after your heart attack that you will continue taking upon discharge from the hospital. These prescriptions have been sent to the [facility] pharmacy. Additionally, your A1c was elevated at 9.1%. This is a blood test that looks at your average blood sugar over 2-3 months. I called your pharmacy who reported that you take Trulicity, Humalog, Lantus, and Jardiance. However, since we do not have access to your primary care records, I recommend continuing your current diabetes medications until your PCP follow-up appointment where further adjustments can be made at that time. Upon discharge from the hospital: * Take Plavix (clopidogrel) 75 mg daily. * Take atorvastatin 80 mg daily. * Take losartan 25 mg daily. * Take aspirin 81 mg daily. This is an wuet-ala-blfcqaw (OTC) medication, so no prescription is required. * Continue your diabetes medications as prescribed at home. * Follow-up with cardiology outpatient in [place] in 2 weeks. * Follow-up with your PCP in 1 week. It is very important to have a close follow-up with your PCP to monitor your medication changes. * Follow the activity recommendations listed below. Please return to the hospital if you experience any of the following: Pressure/squeezing/discomfort/pain in your chest, discomfort in your neck/jaw/shoulder/arm/back, shortness of breath, difficulty breathing, nausea or vomiting, dizziness, lightheadedness, confusion, or passing out. It was a pleasure taking care of you while you were in the hospital, Kaci Wheeler PA-C ACTIVITY RECOMMENDATIONS: Excess manipulation of the wrist should be avoided for the next 24 hours. * No lifting over 2 pounds (approximately a 1/2 gallon of milk) with the utilized arm for 24 hours. * No strenuous activity such as bowling or tennis for 3 days. * Keep the site of the procedure covered with a bandage for 24 hours. *You may shower the day after the procedure. Do not take a tub bath or submerge the puncture site in water for the next 3 days. *Do not operate any motorized equipment for 3 days. SPECIAL CARE INSTRUCTIONS: The site may be slightly bruised and sore following your procedure. Should any of the following occur, contact the Dr. who performed your procedure. 1. Redness/inflammation, swelling, chills, or fever, or colored drainage at procedure site within 3-7 days after your procedure. 2. Coldness, discoloration, ongoing numbness, severe pain, or swelling. Expect mild tingling of hand and tenderness at the puncture site for up to three days. If this persists beyond three days, or other symptoms develop, notify the Dr. who performed your procedure. BLEEDING: If the procedure site on your wrist begins to bleed, do not panic 1. Place 1 or 2 fingers firmly just slightly above the insertion site to stop the bleeding. You may be able to feel your pulse as you hold pressure. 2. Lift your finger after 5 minutes to see if the bleeding has stopped. 3. Once the bleeding has stopped, gently wipe the wrist area clean with a bandage. * If the bleeding from your wrist does not stop after 10 minutes, or if there is a large amount of bleeding or spurting, call 911 (do not drive yourself to the hospital). SKIN IRRITATION: * You may experience some redness and/or swelling in the area where radiation was administered. If any skin irritation occurs, please contact your family physician. FOLLOW UP VISIT: Keep any scheduled doctor appointments. Pending Studies at Discharge: No Stand-Alone Forms: My [facility], Smoking Cessation Medications and DC Order Prescriptions: New atorvastatin 40 mg Tablet 80 mg PO QAM Qty: 30 0RF clopidogrel 75 mg Tablet 75 mg PO QAM Qty: 30 0RF aspirin 81 mg Tablet,Delayed Release (Dr/Ec) 81 mg PO QAM Qty: 30 0RF losartan 25 mg Tablet 25 mg PO QAM Qty: 30 0RF nitroglycerin [Nitrostat] 0.4 mg Tablet, Sublingual 0.4 mg sublingual Q5M PRN (Reason: chest pain) Qty: 15 0RF pantoprazole 40 mg Tablet,Delayed Release (Dr/Ec) 40 mg PO DAILY Qty: 30 0RF Discharge Orders: Discharge Order (Routine); Ordered 06/27/24 Ordered By: Kaci Bahena/Other Patient Handouts: Heart Attack Dc, Warning Signs of a Heart Attack Admission Data Admit Date/Time: 06/26/24 01:43 Attending Provider: Fabian Eaton Admit Provider: Weston Arredondo Primary Care Provider: PCP,NO Hospital Stay Data Procedures Performed Operation Date: 06/26/24 00:15 Actual Procedures p Cineradiography w/Routine Exam - Weston Arredondo MD p Aspiration/PCI w/TREE for Stemi - Weston Arredondo MD Diagnostic Imagining Performed 06/26/24 00:15 CL Cath Imgs for PACS use only Stat Pending Results Patient Have Any Pending Studies at Discharge: No Discharge Instructions Given to Patient (Per Discharging Provider) Mr. Guy, Uday were admitted to the hospital due to a heart attack. You had an emergent cardiac catheterization with Dr. Arredondo where he placed a new stent. Your chest pain resolved after this. You were on a heart monitor throughout your hospitalization and have remained in a normal sinus rhythm. You have been started on some new medications after your heart attack that you will continue taking upon discharge from the hospital. These prescriptions have been sent to the [facility] pharmacy. Additionally, your A1c was elevated at 9.1%. This is a blood test that looks at your average blood sugar over 2-3 months. I called your pharmacy who reported that you take Trulicity, Humalog, Lantus, and Jardiance. However, since we do not have access to your primary care records, I recommend continuing your curren t diabetes medications until your PCP follow-up appointment where further adjustments can be made at that time. Upon discharge from the hospital: * Take Plavix (clopidogrel) 75 mg daily. * Take atorvastatin 80 mg daily. * Take losartan 25 mg daily. * Take aspirin 81 mg daily. This is an zkol-ucc-qzbennk (OTC) medication, so no prescription is required. * Continue your diabetes medications as prescribed at home. * Follow-up with cardiology outpatient in [place] in 2 weeks. * Follow-up with your PCP in 1 week. It is very important to have a close follow-up with your PCP to monitor your medication changes. * Follow the activity recommendations listed below. Please return to the hospital if you experience any of the following: Pressure/squeezing/discomfort/pain in your chest, discomfort in your neck/jaw/shoulder/arm/back, shortness of breath, difficulty breathing, nausea or vomiting, dizziness, lightheadedness, confusion, or passing out. It was a pleasure taking care of you while you were in the hospital, Kaci Wheeler PA-C ACTIVITY RECOMMENDATIONS: Excess manipulation of the wrist should be avoided for the next 24 hours. * No lifting over 2 pounds (approximately a 1/2 gallon of milk) with the utilized arm for 24 hours. * No strenuous activity such as bowling or tennis for 3 days. * Keep the site of the procedure covered with a bandage for 24 hours. *You may shower the day after the procedure. Do not take a tub bath or submerge the puncture site in water for the next 3 days. *Do not operate any motorized equipment for 3 days. SPECIAL CARE INSTRUCTIONS: The site may be slightly bruised and sore following your procedure. Should any of the following occur, contact the Dr. who performed your procedure. 1. Redness/inflammation, swelling, chills, or fever, or colored drainage at procedure site within 3-7 days after your procedure. 2. Coldness, discoloration, ongoing numbness, severe pain, or swelling. Expect mild tingling of hand and tenderness at the puncture site for up to three days. If this persists beyond three days, or other symptoms develop, notify the Dr. who performed your procedure. BLEEDING: If the procedure site on your wrist begins to bleed, do not panic 1. Place 1 or 2 fingers firmly just slightly above the insertion site to stop the bleeding. You may be able to feel your pulse as you hold pressure. 2. Lift your finger after 5 minutes to see if the bleeding has stopped. 3. Once the bleeding has stopped, gently wipe the wrist area clean with a bandage. * If the bleeding from your wrist does not stop after 10 minutes, or if there is a large amount of bleeding or spurting, call 911 (do not drive yourself to the hospital). SKIN IRRITATION: * You may experience some redness and/or swelling in the area where radiation was administered. If any skin irritation occurs, please contact your family physician. FOLLOW UP VISIT: Keep any scheduled doctor appointments. Total Time Total Time Spent Total Time Spent (In Minutes): Greater than 30 minutes spent completing this discharge process including direct patient care, medication reconciliation, documentation, review of labs and images, and coordination of care. Coding Level of Care Code 02037 INP/OBS DISCH >30 MIN Diagnoses STEMI (ST elevation myocardial infarction) I21.3 Involved coronary artery: unspecified coronary artery Insulin-requiring or dependent type II diabetes mellitus E11.9; Z79.4 Memory loss R41.3
--- NOTE | 2024-06-27 14:29 | Electrocardiogram Report ---
Test Reason : Blood Pressure : */* mmHG Vent. Rate : 94 BPM Atrial Rate : 94 BPM P-R Int : 170 ms QRS Dur : 120 ms QT Int : 402 ms P-R-T Axes : 68 -77 95 degrees QTcB Int : 502 ms Normal sinus rhythm Possible Left atrial enlargement Left anterior fascicular block T wave abnormality, consider lateral ischemia Abnormal ECG When compared with ECG of 26-Jun-2024 07:35, No significant change was found Confirmed by Kishan Leal ([id number]) on 06/27/2024 2:28:39 PM Referred By: REFERRED SELF Confirmed By: Kishan Leal
--- NOTE | 2024-06-29 18:53 | Pre Anesthesia Assessment ---
Date of Service June 29, 2024 Pre Sedation Assessment Cardiovascular + regular rate Respiratory + respiratory effort normal Pre-Sedation Airway Assessment Smoking Status: Never smoker Hx Sleep Apnea: Yes Hx Difficult Intubation: No Short, Thick Neck: Yes Thyromental Distance: < 3.5 Finger Breadths Oral Cavity: + Dental Abnormalities Mallampati Class: III ASA: ASA4 Procedure Planning Contraindications for Sedation: none Current Medications Reviewed: Yes Notes The planned sedation has been discussed with the patient. Informed Consent was obtained. I have identified the patient, determined the appropriateness of sedation and have assessed the patient immediately prior to the procedure. All medicine(s) and interventions are by my order.
--- NOTE | 2024-06-29 18:58 | Cardiology Consultation ---
Date of Consultation June 29, 2024 Assessment & Plan (1) CAD in [place] artery: Post PCI with new TREE to first diagonal stent thrombosis 06/26/2024 Moderate to severe nonculprit disease (60% right PLB, 50% mid LAD, 30% ostial LCx, LCx into OM 3 stents patent) 2. Preserved LV functionanterolateral wall motion abnormality 3. Type 2 [id number] 9.1 4. Mildly dilated aortic root/ascending aorta (4.1 cm) 5. Hypertension Presentation consistent with recurrent lateral STEMI and concerning for first diagonal subacute stent thrombosis. May be related to questionable DAPT adherence. Recommend proceeding with emergent cardiac catheterization and likely primary PCI. No apparent contraindications to procedure. Discussed risks, benefits, alternatives of procedure with patient and they are willing to proceed. Further recommendations pending findings of coronary angiography. History of Present Illness Attending Physician: Fabian Eaton MD History of Present Illness Mr. Guy is a pleasant 53-year-old man with recent lateral NV here with recurrent chest pain and ECG concerning for acute NV. Patient seen emergently in the ED after heart alert called after serial ECG. Reported history of coronary artery disease with remote placement of 4 stents in the setting of exertional dyspnea. Unsure when last stents were placed or where but thinks several years ago. Has a history of type 2 diabetes, morbid obesity. Non-smoker. On 06/26/2024 underwent emergent cardiac catheterization after 3 hours of a acute chest pain. Cardiac cath revealed occluded First diagonal stent. Had PCI with placement of new overlapping TREE. Postprocedure troponin peaked at 64,000. Echo showed preserved LV function with anterolateral wall motion abnormality. Discharged on DAPT with aspirin, clopidogrel. Initially at home states he was doing well. Had some mild epigastric chest discomfort yesterday which resolved within acid. Today after meal again had re current chest pain that did not relieve with an acids and was associated with shortness of breath. Pain felt like prior pain he had with his NV beginning approximately 1 to 2 hours prior to arrival. ECG showed subtle lateral ST elevation. HS TropI 2100 and down to 1500 on subsequent check. Given IV heparin, clopidogrel morphine without resolution of pain. Subsequent ECG showed more prominent ST elevations in home with activated. Of note patient states unsure which meds he was taking at home. States he got 2 new medicines from the pharmacy 1 that was twice a day 1 that he was supposed to take at night and had been taking those. Allergies Allergy/AdvReac Type Severity Reaction Status Date / Time No Known Drug Allergies Allergy na Verified 06/26/24 03:03 Home Medications Medication Instructions Recorded Confirmed Type aspirin 81 mg tablet,delayed 81 mg PO QAM #30 tabs 06/27/24 Rx release atorvastatin 40 mg tablet 80 mg (2 x 40 mg) PO QAM #30 tabs 06/27/24 Rx clopidogrel 75 mg tablet 75 mg PO QAM #30 tabs 06/27/24 Rx losartan 25 mg tablet 25 mg PO QAM #30 tabs 06/27/24 Rx nitroglycerin 0.4 mg sublingual 0.4 mg sublingual Q5M PRN chest 06/27/24 Rx tablet (Nitrostat) pain #15 tabs pantoprazole 40 mg tablet,delayed 40 mg PO DAILY #30 tabs 06/27/24 Rx release albuterol sulfate 90 mcg/actuation 2 puff inhalation Q6H PRN sob 06/29/24 History aerosol inhaler (Ventolin HFA) dulaglutide 0.75 mg/0.5 mL 0.75 mg subcut WK 06/29/24 History subcutaneous pen injector (Trulicity) empagliflozin 10 mg tablet 10 mg PO DAILY 06/29/24 History (Jardiance) famotidine 20 mg tablet 20 mg PO BID PRN Other 06/29/24 History insulin glargine 100 unit/mL (3 42 unit subcut DIRECTED 06/29/24 History mL) subcutaneous pen (Lantus Solostar U-100 Insulin) insulin lispro 100 unit/mL See Rx Instructions .Route .COMPLEX 06/29/24 History subcutaneous pen (Humalog KwikPen (U-100) Insulin) quetiapine 50 mg tablet 50 - 100 mg PO HS PRN Other 06/29/24 History trazodone 50 mg tablet 50 mg PO HS PRN Sleep 06/29/24 History Patient History Social History Smoking Status: Never smoker Hx Alcohol Use: No Hx Substance Use: No Preferred Language: Lao Communication Ability: Effective General Internist Required: No Beliefs That Will Affect Care: None Current Living Situation: Alone Feels Safe at Home: Yes Assistive Devices: Denture - Upper, Denture - Lower and Scooter/Electric Scooter Review of Systems Review of Systems: All systems reviewed & are unremarkable except as noted in HPI & below Physical Exam Physical Exam: General: Uncomfortable HEENT: Sclerae anicteric Lungs: Clear to auscultation bilaterally Cardiac: Regular rate and rhythm, no murmurs. Vascular: 2+ right radial. Prior right radial artery access site with no ecchymosis, hematoma. Abdomen: Soft, nontender Extremities: Well perfused, no peripheral edema. Neuro: Nonfocal PG Care Time/CCT Total # of Minutes Spent Total Time Spent with Patient: Total time spent is greater than 50% in coordination of care (as documented) at patient's floor/unit and/or counseling patient: Coding Level of Care Code 09169 INT INP/OBS CARE 2/55MIN Diagnoses CAD in [place] artery I25.10
== END 2024-06-27 14:08 | disposition home or self-care (01) | DRG 321 ==
LOC: ED 00:21 → INTOOBSV 01:43 → SUATTDRO 01:43 → 2S 01:43

== ENCOUNTER 2024-06-29 16:40 | Inpatient (IN) ==
[2024-06-29 17:05] LABS: iSTAT Creatinine 1.1 mg/dl (0.6-1.3); iSTAT Hemoglobin 16.3 g/dl (14.0-18.0); iSTAT Ionized Calcium 1.01 mmol/l (1.12-1.32); iSTAT Potassium 4.2 mmol/L (3.3-5.0)
[2024-06-29 17:05] LABS: Basophils # (auto) 0.08 K/uL (0.00-0.20); Basophils % (auto) 0.7 %; Eosinophils # (auto) 0.23 K/uL (0.00-0.50); Eosinophils % (auto) 2.1 %; Hematocrit (blood only) 45.8 % (42.0-52.0); Hemoglobin 15.7 g/dl (14.0-18.0); Immature Granulocytes # (auto) 0.06 K/uL (0.01-0.20); Immature Granulocytes % (auto) 0.6 %; Lymphocytes # (auto) 2.16 K/uL (1.20-3.40); Lymphocytes % (auto) 20.1 %; Mean Corpuscular Hemoglobin 29.7 pg (25.0-34.0); Mean Corpuscular Hgb Conc 34.3 g/dL (32.0-36.0); Mean Corpuscular Volume 86.6 fL (80.0-100.0); Mean Platelet Volume 11.2 fL (9.4-12.4); Monocytes # (auto) 0.74 K/uL (0.11-0.59); Monocytes % (auto) 6.9 %; Neutrophils # (auto) 7.45 K/uL (1.40-6.50); Neutrophils % (auto) 69.6 %; Platelet Count 280 K/uL (130-400); RDW Coefficient of Variation 13.2 % (11.5-14.5); RDW Standard Deviation 41.5 fL (36.4-46.3); Red Blood Count 5.29 M/uL (4.70-6.10); White Blood Count 10.72 K/ul (4.8-10.8)
--- NOTE | 2024-06-29 17:06 | Emergency Department Note ---
Impression & Plan STEMI (ST elevation myocardial infarction), Elevated troponin, Chest pain due to CAD ED Provider Note NAME: MICHAEL CERON AGE: 53 SEX: M : 1970 ARRIVES VIA: Ambulance INFORMANT: Patient, ED PROVIDER(S): Akbar Johnson MD CHIEF COMPLAINT: Chest pain HPI: This is a 53-year-old male presenting for chest pain. Patient has had a STEMI on Sunday, 4/5 days ago. Patient had PCI/stenting. Patient notes he has similar pain as then. He is having slightly less pain as he is not diaphoretic. Patient started new medications but is unsure if he is taking any blood thinners. Patient notes he is still waiting for medication in the mail. ROS: See above HPI for pertinent positives & negatives. A total of 10 systems reviewed and were otherwise negative. PAST MEDICAL HISTORY: See Below PAST SURGICAL HISTORY: See Below FAMILY HISTORY: See Below SOCIAL HISTORY: See Below HOME MEDICATIONS: See Below ALLERGIES: See Below VITALS: See Below PHYSICAL EXAMINATION: General: resting comfortably in no acute distress Head: Normocephalic and atraumatic Eyes: Normal inspection, extraocular muscles intact Ear, nose, throat: Normal external exam Neck: Normal range of motion Respiratory: lungs clear to auscultation bilaterally Cardiovascular: Regular rate/rhythm, no murmur GI: soft, nontender, no guarding or rebound Extremities: nontender, moves all extremities Neuro: The patient awake and alert, appropriately conversive, no focal deficits, symmetric faces Skin: Warm, dry, and intact MEDICAL DECISION MAKING: This is a 53-year-old male presenting for chest pain. I was given EKG from EMS command. He does have slight elevations in aVL and 1. This appears somewhat similar to patient's discharge EKG. He has an EKG upon arrival that shows more significant elevations in 1 and aVL, again similar to ones when he was discharged. I have sent this picture to Dr. Arredondo, patient's contact lens lathe operator and interventional cardiology on-call. After reviewing EKG,, he states to start Plavix, heparin and check troponins x 2. This time is unclear whether the patient taking his clopidogrel -First ECG independently interpreted by me with normal sinus rhythm, rate of 92, normal IA, recommend branch block, normal QTc, slight ST depressions in lead III and aVF with subtle ST segment elevations in lead I and aVL/V2, similar to previous EKG on discharge from last admission -Bedside echo performed showing generally preserved EF, no large pericardial effusion, otherwise limited views due to habitus and positioning -Patient has some moderate relief after morphine initial TMS and fentanyl here. He has been given for clopidogrel load and heparin. After 1 hour his troponin results with 2100. -Patient notes continued chest pain now getting worse again. -Second EKG reveals normal sinus rhythm now with worsening ST segments elevations in lead I, aVL, depressions in lead III, aVF, again worse than initial. -Dr. Arredondo made aware of troponin, pending delta troponin and second EKG showing changes. He recommends activating STEMI alert. -Patient goes up to Bank Clerk for STEMI alert Differential diagnosis: STEMI, stent occlusion, PE, dissection, coronary artery dissection ER treatment provided: See below Diagnostics interpreted by me: ECG: See above Cardiac Monitoring: An order was placed for continuous cardiac monitoring. The monitor shows a rate of 89 with sinus rhythm. Laboratory studies: As stated above and show below. Imaging studies: See below. Critical Care Note: I have personally spent 70 minutes of critical care time in the direct management of this patient. This includes bedside care, interpretation of diagnostic studies, and testing, discussion with consultants, patient, and family members, and other required patient management activities. This 70 minutes is in excess of all separately billable procedures. Past Med/Surg History Problem List (Updated 06/29/24 @ 23:32 by Akbar Johnson MD) Chest pain due to CAD (Acute) Elevated troponin (Acute) Nausea (Acute) Hyperglycemia (Acute) Morbid obesity with BMI of 45.0-49.9, adult (Acute) Insulin-requiring or dependent type II diabetes mellitus Hyperlipidemia History of coronary artery stent placement (Acute) CAD in [place] artery STEMI (ST elevation myocardial infarction) (Acute) Medical History (Updated 06/29/24 @ 23:32 by Akbar Johnson MD) Diabetes Lumbar degenerative disc disease Memory loss Blindness of right eye Peripheral neuropathy Social History Smoking Status: Never smoker Hx Alcohol Use: No Hx Substance Use: No Preferred Language: Maori Communication Ability: Effective Vehicle Washer Required: No Beliefs That Will Affect Care: None Current Living Situation: Alone Feels Safe at Home: Yes Assistive Devices: Denture - Upper, Denture - Lower and Scooter/Electric Scooter Allergies Allergies Allergy/AdvReac Type Severity Reaction Status Date / Time No Known Drug Allergies Allergy na Verified 06/26/24 03:03 Home Meds Home Medications Medication Instructions Recorded Confirmed albuterol sulfate 90 mcg/actuation 2 puff inhalation Q6H PRN sob 06/29/24 aerosol inhaler (Ventolin HFA) dulaglutide 0.75 mg/0.5 mL 0.75 mg subcut WK 06/29/24 subcutaneous pen injector (Trulicity) empagliflozin 10 mg tablet 10 mg PO DAILY 06/29/24 (Jardiance) famotidine 20 mg tablet 20 mg PO BID PRN Other 06/29/24 insulin glargine 100 unit/mL (3 42 unit subcut DIRECTED 06/29/24 mL) subcutaneous pen (Lantus Solostar U-100 Insulin) insulin lispro 100 unit/mL See Rx Instructions .Route .COMPLEX 06/29/24 subcutaneous pen (Humalog KwikPen (U-100) Insulin) quetiapine 50 mg tablet 50 - 100 mg PO HS PRN Other 06/29/24 trazodone 50 mg tablet 50 mg PO HS PRN Sleep 06/29/24 Previous Rx's Medication Instructions Recorded aspirin 81 mg tablet,delayed 81 mg PO QAM #30 tabs 06/27/24 release atorvastatin 40 mg tablet 80 mg (2 x 40 mg) PO QAM #30 tabs 06/27/24 clopidogrel 75 mg tablet 75 mg PO QAM #30 tabs 06/27/24 losartan 25 mg tablet 25 mg PO QAM #30 tabs 06/27/24 nitroglycerin 0.4 mg sublingual 0.4 mg sublingual Q5M PRN chest 06/27/24 tablet (Nitrostat) pain #15 tabs pantoprazole 40 mg tablet,delayed 40 mg PO DAILY #30 tabs 06/27/24 release Results & Data (ED) Vital Signs Vital Signs - 24 hr 06/29/24 16:45 06/29/24 16:55 06/29/24 16:57 Temperature 36.6 C Temperature Source Oral Pulse Rate 87 80 Pulse Rate [Apical] Pulse Rhythm Regular Pulse Strength Normal Respiratory Rate 16 Respiratory Effort / Characteristics Non-Labored Respiratory Depth Normal Respiratory Pattern Regular Blood Pressure 153/97 H Blood Pressure [Left Arm] Blood Pressure Mean 115 Blood Pressure Mean [Left Arm] Blood Pressure Position Lying Blood Pressure Position [Left Arm] Pulse Oximetry 95 89 L Oxygen Delivery Method Room Air Room Air Oxygen Flow Rate Sepsis Recent Fever Within 48 Hours No Sepsis New/Unexplained Change in Mental Status No Sepsis Action Taken by Nursing No Action Required Oxygen Flow Rate - Titration Pulse Oximetry Post Tiitration 06/29/24 16:57 06/29/24 16:57 06/29/24 17:29 Temperature Temperature Source Pulse Rate Pulse Rate [Apical] 90 Pulse Rhythm Pulse Strength Respiratory Rate 12 Respiratory Effort / Characteristics Respiratory Depth Respiratory Pattern Blood Pressure Blood Pressure [Left Arm] 126/78 Blood Pressure Mean Blood Pressure Mean [Left Arm] 94 Blood Pressure Position Blood Pressure Position [Left Arm] Sitting Pulse Oximetry 94 89 L 95 Oxygen Delivery Method Room Air Nasal Cannula Nasal Cannula Oxygen Flow Rate 2 0 3 Sepsis Recent Fever Within 48 Hours Sepsis New/Unexplained Change in Mental Status Sepsis Action Taken by Nursing Oxygen Flow Rate - Titration 3 Pulse Oximetry Post Tiitration 96 06/29/24 18:21 Temperature Temperature Source Pulse Rate Pulse Rate [Apical] 87 Pulse Rhythm Pulse Strength Respiratory Rate 23 Respiratory Effort / Characteristics Respiratory Depth Respiratory Pattern Blood Pressure Blood Pressure [Left Arm] 145/91 H Blood Pressure Mean Blood Pressure Mean [Left Arm] 109 Blood Pressure Position Blood Pressure Position [Left Arm] Sitting Pulse Oximetry 95 Oxygen Delivery Method Nasal Cannula Oxygen Flow Rate 3 Sepsis Recent Fever Within 48 Hours Sepsis New/Unexplained Change in Mental Status Sepsis Action Taken by Nursing Oxygen Flow Rate - Titration Pulse Oximetry Post Tiitration Laboratory Data 06/29/24 16:44 06/29/24 16:44 Lab Results 06/29/24 06/29/24 06/29/24 Range/Units 16:44 16:53 17:58 WBC 10.72 (4.8-10.8) K/ul RBC 5.29 (4.70-6.10) M/uL Hgb 15.7 (14.0-18.0) g/dl POC Hgb 16.3 (14.0-18.0) g/dl Hct 45.8 (42.0-52.0) % POC Hct 48 (42-52) % MCV 86.6 (80.0-100.0) fL MCH 29.7 (25.0-34.0) pg MCHC 34.3 (32.0-36.0) g/dL RDW Std Deviation 41.5 (36.4-46.3) fL RDW Coeff of Aminata 13.2 (11.5-14.5) % Plt Count 280 (130-400) K/uL MPV 11.2 (9.4-12.4) fL Immature Gran % (Auto) 0.6 % Neut % (Auto) 69.6 % Lymph % (Auto) 20.1 % Delta % (Auto) 6.9 % Eos % (Auto) 2.1 % Baso % (Auto) 0.7 % Neut # (Auto) 7.45 H (1.40-6.50) K/uL Lymph # (Auto) 2.16 (1.20-3.40) K/uL Delta # (Auto) 0.74 H (0.11-0.59) K/uL Eos # (Auto) 0.23 (0.00-0.50) K/uL Baso # (Auto) 0.08 (0.00-0.20) K/uL Immature Gran # (Auto) 0.06 (0.01-0.20) K/uL PT 10.5 (9.0-12.0) Seconds INR 1.0 (0.9-1.1) APTT 25 (21-31) Seconds PTT Ratio 0.9 POC Sodium 135 (135-144) mmol/L Sodium 133 L (136-145) mmol/L POC Potassium 4.2 (3.3-5.0) mmol/L Potassium 4.1 (3.5-5.1) mmol/L POC Chloride 96 L (101-112) mmol/L Chloride 98 (98-107) mmol/L Carbon Dioxide 28 (21-32) mmol/L POC Total CO2 27 (24-31) mmol/L Anion Gap 7 (3-11) POC Anion Gap 17.0 (16-25) mmol/L POC BUN 13 (7-18) mg/dl BUN 13 (6-23) mg/dl Creatinine 1.07 (0.6-1.4) mg/dl POC Creatinine 1.1 (0.6-1.3) mg/dl Est Cr Clr Drug Dosing 117.0 ml/min eGFR 83.50 BUN/Creatinine Ratio 12.1 (10-20) Glucose 327 H* (70-99(Fasting)) mg/dl POC Glucose (other) 331 H (70-99) mg/dl Calcium 7.7 L (8.6-10.3) mg/dl POC Ioniz Calcium Tami 1.01 L (1.12-1.32) mmol/l Total Bilirubin 0.4 (0.2-1.0) mg/dl AST 25 (13-39) U/L ALT 18 (7-52) U/L Alkaline Phosphatase 129 H (34-104) U/L Troponin I High Sens 2155.4 H* 1522.7 H* D (0-20) pg/ml Total Protein 6.9 (6.0-8.3) gm/dl Albumin 3.6 (3.4-5.0) gm/dl Globulin 3.3 (2.5-4.0) gm/dl Albumin/Globulin Ratio 1.1 (0.9-2) Lipase 24 (11-82) U/L 06/29/24 Range/Units 18:21 WBC (4.8-10.8) K/ul RBC (4.70-6.10) M/uL Hgb (14.0-18.0) g/dl POC Hgb (14.0-18.0) g/dl Hct (42.0-52.0) % POC Hct (42-52) % MCV (80.0-100.0) fL MCH (25.0-34.0) pg MCHC (32.0-36.0) g/dL RDW Std Deviation (36.4-46.3) fL RDW Coeff of Aminata (11.5-14.5) % Plt Count (130-400) K/uL MPV (9.4-12.4) fL Immature Gran % (Auto) % Neut % (Auto) % Lymph % (Auto) % Delta % (Auto) % Eos % (Auto) % Baso % (Auto) % Neut # (Auto) (1.40-6.50) K/uL Lymph # (Auto) (1.20-3.40) K/uL Delta # (Auto) (0.11-0.59) K/uL Eos # (Auto) (0.00-0.50) K/uL Baso # (Auto) (0.00-0.20) K/uL Immature Gran # (Auto) (0.01-0.20) K/uL PT (9.0-12.0) Seconds INR (0.9-1.1) APTT (21-31) Seconds PTT Ratio POC Sodium (135-144) mmol/L Sodium (136-145) mmol/L POC Potassium (3.3-5.0) mmol/L Potassium (3.5-5.1) mmol/L POC Chloride (101-112) mmol/L Chloride (98-107) mmol/L Carbon Dioxide (21-32) mmol/L POC Total CO2 (24-31) mmol/L Anion Gap (3-11) POC Anion Gap (16-25) mmol/L POC BUN (7-18) mg/dl BUN (6-23) mg/dl Creatinine (0.6-1.4) mg/dl POC Creatinine (0.6-1.3) mg/dl Est Cr Clr Drug Dosing ml/min eGFR BUN/Creatinine Ratio (10-20) Glucose (70-99(Fasting)) mg/dl POC Glucose (other) (70-99) mg/dl Calcium (8.6-10.3) mg/dl POC Ioniz Calcium Tami (1.12-1.32) mmol/l Total Bilirubin (0.2-1.0) mg/dl AST (13-39) U/L ALT (7-52) U/L Alkaline Phosphatase (34-104) U/L Troponin I High Sens Cancelled (0-20) pg/ml Total Protein (6.0-8.3) gm/dl Albumin (3.4-5.0) gm/dl Globulin (2.5-4.0) gm/dl Albumin/Globulin Ratio (0.9-2) Lipase (11-82) U/L Administered Medications Insulin Aspart (Insulin Aspart Per Unit Charge) 0 units SC ACHS TYLOR Stop: 07/29/24 21:10 Last Admin: 06/29/24 21:43 Dose: 3 units Documented By: CP Co-signed By: SKS Insulin Glargine (Lantus Per Unit Charge) 32 units SQ BID TYLOR Stop: 07/29/24 21:10 Last Admin: 06/29/24 21:42 Dose: 32 units Documented By: CP Co-signed By: THAI Miscellaneous (Icu Protocol For Hyperglycemia) 1 each N/A ACHS TYLOR Stop: 07/01/24 20:59 Last Admin: 06/29/24 21:28 Dose: Not Given Documented By: BRANDY Quetiapine Fumarate (Quetiapine Fumarate 100 Mg Tablet) 100 mg PO QPM TYLOR Stop: 07/29/24 21:24 Last Admin: 06/29/24 21:47 Dose: 100 mg Documented By: BRANDY Discontinued Medications Clopidogrel Bisulfate (Clopidogrel Bisulfate 300 Mg Tab) 300 mg PO NOW STA Stop: 06/29/24 16:52 Last Admin: 06/29/24 17:11 Dose: 300 mg Documented By: CRYSTAL Eptifibatide (Eptifibatide 2 Mg/Ml 10 Ml Vial (Bank Clerk Use Only)) Confirm Administered Dose 20 mg IV .STK-MED ONE Stop: 06/29/24 19:30 Last Admin: 06/29/24 19:36 Dose: 11.3 ml Documented By: PHAM Eptifibatide (Eptifibatide 2 Mg/Ml 10 Ml Vial (Bank Clerk Use Only)) Confirm Administered Dose 20 mg IV .STK-MED ONE Stop: 06/29/24 19:43 Last Admin: 06/29/24 19:51 Dose: 11.3 ml Documented By: PHAM Eptifibatide (Eptifibatide 0.75 Mg/Ml 75mg Vial (Bank Clerk Use Only)) Confirm Administered Dose 75 mg IV .STK-MED ONE Stop: 06/29/24 19:45 Last Increment: 06/29/24 19:52 Dose: 15 mg Documented By: PHAM Eptifibatide (Eptifibatide 2 Mg/Ml 10 Ml Vial (Bank Clerk Use Only)) Confirm Administered Dose 20 mg IV .STK-MED ONE Stop: 06/29/24 19:51 Last Admin: 06/29/24 19:52 Dose: 11.3 ml Documented By: PHAM Fentanyl Citrate (Fentanyl Citrate Pf 100 Mcg/2 Ml Vial) 50 mcg IV NOW STA Stop: 06/29/24 17:19 Last Admin: 06/29/24 17:24 Dose: 50 mcg Documented By: CRYSTAL Fentanyl Citrate (Fentanyl Citrate Pf 100 Mcg/2 Ml Vial) 50 mcg IV NOW STA Stop: 06/29/24 18:05 Last Admin: 06/29/24 18:19 Dose: 50 mcg Documented By: CRYSTAL Fentanyl Citrate (Fentanyl Citrate Pf 100 Mcg/2 Ml Vial) Confirm Administered Dose 100 mcg .ROUTE .STK-MED ONE Stop: 06/29/24 18:38 Last Increment: 06/29/24 20:06 Dose: 50 mcg Documented By: PHAM Heparin Sodium (Porcine) (Heparin Sod (Porcine) 1000 Unit/Ml) 1 units IV NOW ONE Stop: 06/29/24 17:08 Last Admin: 06/29/24 17:38 Dose: Not Given Documented By: CRYSTAL Heparin Sodium (Porcine) (Heparin Sod (Porcine) 1000 Unit/Ml) 4,000 units IV NOW ONE Stop: 06/29/24 17:46 Last Admin: 06/29/24 17:37 Dose: 4,000 units Documented By: CRYSTAL Co-signed By: SERAFIN Heparin Sodium (Porcine) (Heparin (Porcine) 1000 Unit/Ml 10 Ml (Bank Clerk Use Only)) Confirm Administered Dose 10,000 units .ROUTE .STK-MED ONE Stop: 06/29/24 18:38 Last Admin: 06/29/24 20:07 Dose: 12,000 units Documented By: PHAM Heparin Sodium (Porcine) (Heparin (Porcine) 1000 Unit/Ml 10 Ml (Bank Clerk Use Only)) Confirm Administered Dose 10,000 units .ROUTE .STK-MED ONE Stop: 06/29/24 19:48 Last Admin: 06/29/24 20:09 Dose: Not Given Documented By: PHAM Heparin Sodium/Dextrose (Heparin Iv Adult Wt-Based Low-Dose W/ Initial Bolus Protocol) 1 each IV NOW STA; Protocol Stop: 06/29/24 16:52 Last Admin: 06/29/24 17:38 Dose: Not Given Documented By: CRYSTAL Heparin Sodium/Sodium Chloride (Heparin In Nss Infusion 1000 Unit/500 Ml (2 U/Ml) Bag) Confirm Administered Dose 3,000 units IV .STK-MED ONE Stop: 06/29/24 18:38 Last Admin: 06/29/24 19:09 Dose: 3,000 units Documented By: PHAM Heparin Sodium/Dextrose (Heparin Sodium/Dextrose) 25,000 units in 500 mls @ 20 mls/hr IV .Q24H TYLOR; Protocol Stop: 07/29/24 17:14 Last Titration: 06/29/24 20:54 Dose: Infused Documented By: BRANDY Co-signed By: THAI Admin: 06/29/24 17:37 Dose: 1,000 units/hr, 20 mls/hr Documented By: CRYSTAL Co-signed By: SERAFIN Eptifibatide (Integrilin) 75 mg in 100 mls @ 20 mls/hr IV .Q5H [facility]; Protocol Stop: 06/29/24 22:14 Last Infusion: 06/29/24 22:45 Dose: Infused Documented By: BRANDY Co-signed By: THAI Admin: 06/29/24 20:15 Dose: 250 mcg/min, 20 mls/hr Documented By: BRANDY Co-signed By: THAI Ioversol (Optiray 350) Confirm Administered Dose 1 ml .ROUTE .STK-MED ONE Stop: 06/29/24 18:39 Last Admin: 06/29/24 20:07 Dose: 120 ml Documented By: PHAM Midazolam HCl (Midazolam Hcl 1 Mg/Ml 2ml Vial) Confirm Administered Dose 2 mg .ROUTE .STK-MED ONE Stop: 06/29/24 18:37 Last Increment: 06/29/24 20:06 Dose: 1 mg Documented By: PHAM Nicardipine HCl (Nicardipine Hcl Inj 2.5 Mg/Ml 10 Ml Amp) Confirm Administered Dose 25 mg .ROUTE .STK-MED ONE Stop: 06/29/24 18:38 Last Admin: 06/29/24 19:09 Dose: 25 mg Documented By: PHAM Nitroglycerin (Nitroglycerin Sl 0.4 Mg/Tab Tab) 0.4 mg SL NOW STA Stop: 06/29/24 17:19 Last Admin: 06/29/24 17:23 Dose: 0.4 mg Documented By: CRYSTAL Nitroglycerin/Dextrose (Nitroglycerin/D5w 100mcg/Ml 20ml Syr) Confirm Administered Dose 2,000 mcg .ROUTE .STK-MED ONE Stop: 06/29/24 18:39 Last Admin: 06/29/24 19:09 Dose: 2,000 mcg Documented By: PHAM Prasugrel (Prasugrel Tab 10 Mg Tab) Confirm Administered Dose 60 mg PO .STK-MED ONE Stop: 06/29/24 20:05 Last Admin: 06/29/24 20:10 Dose: 60 mg Documented By: PHAM Imaging Data Radiologist's Impression: Chest X-Ray 06/29/24 16:50 XR chest 1V portable HISTORY: 53 years-old Male Chest pain, nonspecific COMPARISON: 06/26/2024 TECHNIQUE: AP view of the chest FINDINGS: Cardiac silhouette is unchanged. No pneumothorax or overt pulmonary edema. Unchanged blunting of the costophrenic angles. No large pleural effusion. Bones appear grossly intact. IMPRESSION: Cardiomegaly without acute process of the chest. ACT 112: Negative or not required by law. The above report was generated using voice recognition software. It may contain grammatical, syntax or spelling errors. Electronically signed by: Almas Vieira M.D. 06/29/2024 5:57 PM Discharge Plan Visit Data Chief Complaint: Chest Pain Stated Complaint: CHEST PAIN ED Provider: Akbar Johnson Discharge Problem: STEMI (ST elevation myocardial infarction), Elevated troponin, Chest pain due to CAD Patient Disposition: Admitted As Inpatient Discharge Instructions Interventions: ED Discharge Assessment Last Done: 06/29/24 18:30
[2024-06-29] MEDS: CLOPIDOGREL BISULFATE 300 MG TAB PO STA (17:11)
[2024-06-29] MEDS: NITROGLYCERIN SL 0.4 MG/TAB TAB SL STA (17:23)
[2024-06-29] MEDS: fentaNYL citrate PF 100 MCG/2 ML VIAL IV STA ×2 (17:24→18:19)
[2024-06-29 17:29] LABS: Albumin Globulin Ratio 1.1 (0.9-2); Albumin Level 3.6 gm/dl (3.4-5.0); BUN Creatinine Ratio 12.1 (10-20); Bilirubin,Total 0.4 mg/dl (0.2-1.0); Calcium 7.7 mg/dl (8.6-10.3); Globulin 3.3 gm/dl (2.5-4.0); Potassium 4.1 mmol/L (3.5-5.1); Total Protein 6.9 gm/dl (6.0-8.3); Troponin I High Sensitivity 2155.4 pg/ml (0-20)
[2024-06-29] MEDS: HEPARIN SOD (PORCINE) 1000 UNIT/ML IV ONE ×2 (17:37→17:38)
[2024-06-29] MEDS: HEPARIN SODIUM/DEXTROSE 25,000 UNITS/500 ML BAG IV SCH (17:37)
[2024-06-29] MEDS: Heparin IV Adult Wt-Based Low-Dose w/ INITIAL Bolus Protocol IV STA (17:38)
[2024-06-29 17:40] LABS: Partial Thromboplastin Ratio 0.9; Partial Thromboplastin Time 25 Seconds (21-31); Prothrombin Time 10.5 Seconds (9.0-12.0)
--- NOTE | 2024-06-29 18:00 | XRay Report ---
XR chest 1V portable HISTORY: 53 years-old Male Chest pain, nonspecific COMPARISON: 06/26/2024 TECHNIQUE: AP view of the chest FINDINGS: Cardiac silhouette is unchanged. No pneumothorax or overt pulmonary edema. Unchanged blunting of the costophrenic angles. No large pleural effusion. Bones appear grossly intact. IMPRESSION: Cardiomegaly without acute process of the chest. ACT 112: Negative or not required by law. The above report was generated using voice recognition software. It may contain grammatical, syntax o r spelling errors. Electronically signed by: Almas Vieira M.D. 06/29/2024 5:57 PM
--- NOTE | 2024-06-29 18:40 | History & Physical Report ---
Date of Service June 29, 2024 Assessment & Plan (1) STEMI (ST elevation myocardial infarction): Plan: Assessment: 1. Acute heart alert with suspected lateral wall recurrent STEMI with ST elevation in leads I and aVL. Patient was just admitted 3 days ago with a l ateral STEMI and went to the [facility] and had a stent placed in the first diagonal with an stent thrombosis at that time. The patient is uncertain if he is on Plavix currently or not. Highly suspicious for possible recurrent in- stent thrombosis. Interventional cardiology has been consulted. Tentative plan is for Dr. Arredondo to take the patient to the [facility] this evening for reinvestigation. 2. Coronary artery disease. Again recent STEMI. And what appears to be a recurrent probable STEMI. 3. Morbid obesity. 4. Diabetes mellitus type 2 insulin requiring. Basal bolus insulin has been ordered. 5. Dyslipidemia. Continue statin therapy. 6. Hypertension continue home medications. 7. History of some memory loss and possible some mild cognitive impairment. Details not otherwise specified. 8. Right eye blindness. Plan: I discussed above. Please refer to orders for further planning. History of Present Illness Chief Complaint: Chest pain. Primary Care Provider: Melody Guthrie NP This is a 53-year-old male who was admitted on 06/26/[address] lateral wall ST elevation myocardial infarction with [employer] [facility] and received an overlapping stent in his first diagonal. He had in-stent thrombosis at that time. He was discharged to home on the . He returns today with chest pain. It is unclear is whether or not the patient was taking his Plavix. Initially EKG in the field showed mild ST elevation in leads I and aVL. However while in the ER his ST segments of elevated more significantly with associated pain. He has been heparinized. A heart alert has been called. Interventional cardiology notified. Tentative plan is to go to the [facility] Operations Supervisor. Heparin drip has been initiated. The patient has had aspirin. His troponins are more elevated at approximately 350 compared to when he had his initial [facility] earlier this week. Will admit to the ICU consult critical care as well as interventional cardiology. Further recommendations to be forthcoming post cath. Allergies Allergy/AdvReac Type Severity Reaction Status Date / Time No Known Drug Allergies Allergy na Verified 06/26/24 03:03 Home Medications Medication Instructions Recorded Confirmed Type aspirin 81 mg tablet,delayed 81 mg PO QAM #30 tabs 06/27/24 Rx release atorvastatin 40 mg tablet 80 mg (2 x 40 mg) PO QAM #30 tabs 06/27/24 Rx clopidogrel 75 mg tablet 75 mg PO QAM #30 tabs 06/27/24 Rx losartan 25 mg tablet 25 mg PO QAM #30 tabs 06/27/24 Rx nitroglycerin 0.4 mg sublingual 0.4 mg sublingual Q5M PRN chest 06/27/24 Rx tablet (Nitrostat) pain #15 tabs pantoprazole 40 mg tablet,delayed 40 mg PO DAILY #30 tabs 06/27/24 Rx release albuterol sulfate 90 mcg/actuation 2 puff inhalation Q6H PRN sob 06/29/24 History aerosol inhaler (Ventolin HFA) dulaglutide 0.75 mg/0.5 mL 0.75 mg subcut WK 06/29/24 History subcutaneous pen injector (Trulicity) empagliflozin 10 mg tablet 10 mg PO DAILY 06/29/24 History (Jardiance) famotidine 20 mg tablet 20 mg PO BID PRN Other 06/29/24 History insulin glargine 100 unit/mL (3 42 unit subcut DIRECTED 06/29/24 History mL) subcutaneous pen (Lantus Solostar U-100 Insulin) insulin lispro 100 unit/mL See Rx Instructions .Route .COMPLEX 06/29/24 History subcutaneous pen (Humalog KwikPen (U-100) Insulin) quetiapine 50 mg tablet 50 - 100 mg PO HS PRN Other 06/29/24 History trazodone 50 mg tablet 50 mg PO HS PRN Sleep 06/29/24 History Past Med/Surg History Problem List (Updated 06/26/24 @ 05:02 by Mao Rodriguez MD) Diabetes (Acute) Nausea (Acute) Hyperglycemia (Acute) Lumbar degenerative disc disease Memory loss Blindness of right eye Peripheral neuropathy Morbid obesity with BMI of 45.0-49.9, adult (Acute) Insulin-requiring or dependent type II diabetes mellitus Hyperlipidemia History of coronary artery stent placement (Acute) CAD in [place] artery STEMI (ST elevation myocardial infarction) (Acute) Social History Smoking Status: Never smoker Hx Alcohol Use: No Hx Substance Use: No Preferred Language: Mauritanian Communication Ability: Effective Dog Groomer Required: No Beliefs That Will Affect Care: None Current Living Situation: Alone Feels Safe at Home: Yes Assistive Devices: Denture - Upper, Denture - Lower and Scooter/Electric Scooter Review of Systems Review of Systems: A 10 point review of system was obtained and unless otherwise stated here or in history of present illness are negative and noncontributory to chief complaint. Physical Exam Physical Exam: In General: In general 53-year-old male is alert and oriented x 3 at the time of exam he interacts fairly appropriately however he does appear to be inappropriately joking despite the fact that he is having recurrent heart attack. However there is some question whether he might have some underlying cognitive impairment. HEENT: Normocephalic atraumatic pupils are equal round and reactive to light bilaterally. No scleral icterus no conjunctival injection external auditory canals are patent septum is in the midline nose is without discharge oral mucosa is pink and moist without lesion. NECK: Supple no rigidity no lymphadenopathy no thyromegaly no carotid bruits no JVD no masses. HEART: Regular rate and rhythm I do not appreciate any ectopy or rub. No murmur. LUNGS: Clear to auscultation bilaterally and anteriorly with no evidence of adventitious sounds/wheezes rales or rhonchi. ABDOMEN: Obese, soft nontender, no rebound, no peritoneal signs, positive bowel sounds, no appreciable organomegaly. EXTREMITIES: Intact, no peripheral cyanosis, clubbing or edema. Strength is 5 out of 5 in extremities x4. NEUROLOGICAL: Cranial nerves II through XII are grossly intact with no focal deficit elicited upon examination. No tremor. Results & Data Results & Data Vital Signs (Past 12 Hours) Vital Signs Temp Pulse Pulse Resp BP BP Pulse Ox 06/29/24 18:21 87 23 145/91 H 95 06/29/24 17:29 90 12 126/78 95 06/29/24 16:57 89 L 06/29/24 16:57 94 06/29/24 16:57 89 L 06/29/24 16:55 80 06/29/24 16:45 36.6 C 87 16 153/97 H 95 O2 Del Method O2 Flow Rate 06/29/24 18:21 Nasal Cannula 3 06/29/24 17:29 Nasal Cannula 3 06/29/24 16:57 Nasal Cannula 0 06/29/24 16:57 Room Air 2 06/29/24 16:57 Room Air 06/29/24 16:55 06/29/24 16:45 Room Air Code Status & VTE Plan Code Status Full code. I personally discussed with patient the bedside. The patient suffered a predicament unable to speak for himself he is requesting to speak with his stepmother. PG Care Time/CCT Total # of Minutes Spent Total Time Spent with Patient: Total time spent is greater than 50% in coordination of care (as documented) at patient's floor/unit and/or counseling patient: Coding Level of Care Code 45992 INT INP/OBS CARE 375MIN Diagnoses STEMI (ST elevation myocardial infarction) I21.3 Involved coronary artery: unspecified coronary artery (1) STEMI (ST elevation myocardial infarction) Involved coronary artery: unspecified coronary artery Qualified Code(s): I21.3 - ST elevation (STEMI) myocardial infarction of unspecified site
[2024-06-29] MEDS: NITROGLYCERIN/D5W 100MCG/ML 20ML SYR ONE (19:09)
[2024-06-29] MEDS: niCARdipine HCL INJ 2.5 MG/ML 10 ML AMP ONE (19:09)
[2024-06-29] MEDS: EPTIFIBATIDE 2 MG/ML 10 ML VIAL (CATH LAB USE ONLY) IV ONE ×3 (19:36→19:52)
[2024-06-29] MEDS: EPTIFIBATIDE 0.75 MG/ML 75MG VIAL (CATH LAB USE ONLY) IV ONE (19:52)
[2024-06-29] MEDS: fentaNYL citrate PF 100 MCG/2 ML VIAL ONE (20:06)
[2024-06-29] MEDS: MIDAZOLAM HCL 1 MG/ML 2ML VIAL ONE (20:06)
[2024-06-29] MEDS: HEPARIN (PORCINE) 1000 UNIT/ML 10 ML (CATH LAB USE ONLY) ONE ×2 (20:07→20:09)
[2024-06-29] MEDS: OPTIRAY 350 ONE (20:07)
[2024-06-29] MEDS ORDERED: ONDANSETRON INJ 2 MG/ML 2 ML VIAL IV PRN (20:09)
[2024-06-29] MEDS: PRASugrel TAB 10 MG TAB PO ONE (20:10)
[2024-06-29] MEDS ORDERED: EPTIFIBATIDE BOLUS/DRIP IV STA (20:13)
[2024-06-29] MEDS ORDERED: STAT IV Infusion **Titration per Protocol STA (20:13)
[2024-06-29] MEDS: EPTIFIBATIDE 75 MG/100 ML VIAL IV SCH (20:15)
--- NOTE | 2024-06-29 20:17 | Post Anesthesia Assessment ---
Date of Service June 29, 2024 Post Sedation Assessment Vital Signs Temp Pulse Pulse Resp BP BP Pulse Ox 06/29/24 18:21 87 23 145/91 H 95 06/29/24 17:29 90 12 126/78 95 06/29/24 16:57 89 L 06/29/24 16:57 94 06/29/24 16:57 89 L 06/29/24 16:55 80 06/29/24 16:45 97.9 F 87 16 153/97 H 95 O2 Del Method O2 Flow Rate 06/29/24 18:21 Nasal Cannula 3 06/29/24 17:29 Nasal Cannula 3 06/29/24 16:57 Nasal Cannula 0 06/29/24 16:57 Room Air 2 06/29/24 16:57 Room Air 06/29/24 16:55 06/29/24 16:45 Room Air Recovery Score Activity: Moves 4 extremities Respiration: Deep Breath/Cough Circulation: +/-20% PreAnes Value Consciousness: Fully Awake Oxygen Saturation: O2 needed for >90% Discharge Sedation Level of Care: Fast Track Phase II Post Sedation Plan On clinical assessment, the patient appears to have tolerated the sedation without complications. Patient is recovering as anticipated. Patient will continue to be monitored by nursing and may be discharged when sedation discharge criteria are met per below protocol. Upon Completions of procedure up to 15 minutes continue every 5 minute vital signs and the P.A.R. score; then discharge to a Phase I or Fast Track to Phase II per the following guidelines: * Discharge Patient to appropriate Phase II area if PAR is 8 or greater or return to pre- procedure baseline. The post - procedure orders will be as directed. * If PAR score is less than 8 or not return to pre-procedure baseline then patient will follow Phase I monitoring till PAR is reached for Phase II. The Phase I may be done in procedure room or may call to secure a Phase I area. * If naloxone or flumazenil are used for reversal, hold in Phase I for continued monitoring from when last reversal dose was given for a minimum of 60 minutes or longer pending the nurse and/or physician discretion of patient condition before discharge to Phase II. Please call the Sedation Physician to re-evaluate and complete post-note for discharge to Phase II area. Do NOT discharge from procedure sedation or Phase 1 until post- sedation evaluation note is complete by procedure /sedation MD Sedation Discharge Instructions to be given to the patient at discharge to home.
--- NOTE | 2024-06-29 20:47 | Cardiac Catheterization ---
[facility] Data: [employer] Cardiac Status Clinical evaluation leading to the procedure CAD Presenation: STEMI Anginal Classification: CCS IV Diagnostic Physicians Name: Weston Arredondo MD Closure Device Recommendations: PCI without planned CABG Cardiac Cath Procedure Full Procedure Date June 29, 2024 Pre-Procedure Diagnosis Pre-Procedure Diagnosis: STEMI AUC Score AUC Score: 9 Post-Procedure Diagnosis Post-Procedure Diagnosis: Severe CAD, Successful PCI and Normal Intracardiac Pressures Procedure(s) Performed Procedure(s) Performed: Coronary Angiography, Left Heart Cath, PTCA, Aspiration Thrombectomy and IVUS Embedded Software Test Engineer Weston Arredondo MD Organizational Development Consultant(s) Pals Specialist Estimated Blood Loss Estimated Blood Loss: 25 Medication(s) Medication(s): Fentanyl, Heparin, Integrilin, Lidocaine 1%, Nicardipine, Nitroglycerin and Versed Medication(s): Prasugrel Summary of Findings Indication: STEMI/Heart Alert. Primary PCI for first diagonal stent thrombosis 3 days ago. Here with recurrent chest pain and lateral ST elevations. Access: 6 Fr slender right radial artery Catheters: EBU 3.5 guide, diagnostic JR4 Findings: LM -normal caliber, no significant disease LAD -medium caliber, 30% ostial with mobile haziness, diffuse 30 percent mid segment disease with focal 50% stenosis after third septal. Distal vessel without significant disease and wraps around apex. Ostial/proximal first diagonal stent acutely occluded. Circumflex -medium caliber, ostial to mid LCx into large OM 3 stents, haziness around ostial stent at bifurcation with LAD. Distal AV groove circumflex without significant disease. RCA -dominant, large caliber, mid segment luminal regularities, PDA widely patent. 40% stenosis in right posterior AV branch right after takeoff of PDA. Right PLB with 70-80% proximal stenosis LVEDP -19 -- PCI -- Antithrombotic therapy: Heparin, prasugrel, Integrilin Procedure: Left main cannulated with EBU 3.5 guide [place] blue wire passed into first diagonal [place] wire placed in the LAD Proximal D1 stent occlusion l dilated with 2.0 compliant balloon IVUS catheter placed into mid first diagonal. Pullback revealed well apposed stent, possibly underexpanded in proximal to mid segment, mild residual thrombus, no significant stenosis at diagonal ostium. Mild proximal LAD disease. Circumflex stent noted to extend into left main with adherent thrombus extending into LAD. No significant left main disease. Continuous aspiration thrombectomy with penumbra CAT Rx catheter pullback from mid diagonal back through ostial LAD Diagonal stent postdilated with 2.75 NC balloon up to 18 emilie IC vasodilators administered for spasm Post procedure NEREYDA 3 flow, stent well expanded with minimal residual stenosis and no apparent cardiac complications. [place] blue wire removed from diagonal and redirected into LAD Additional past with CAT Rx thrombectomy catheter and LAD for residual thrombus at LAD ostium attempted, minimal apparent change angiographically. During case was started on Integrilin which we will continue. Arterial Closure: TR band Summary: 1. Lateral STEMI/proximal D1 subacute 100% stent thrombosis 2. Multivessel non-culprit coronary artery disease -40% R-PAV, 75% R-PLB - overlapping stents from ostium to mid circumflex into OM 3 widely patent 50% mid LAD stenosis 3. Apparent thrombus in ostial LAD adhered to ostial circumflex stent struts on IVUS 4. Normal intracardiac filling pressure. 5. Successful PCI of proximal 1st diagonal stent thrombosis with continuous aspiration thrombectomy and repeat angioplasty (2.75 NC to high atmospheres). Recommendations: Admit to ICU for continued monitoring Loaded with prasugrel 60 mg in [employer] [facility] Continue Integrilin for total of 3 hours Continue DAPT indefinitely Trend troponins until peak, repeat limited echo in a.m. Continue ARB High-dose statin Consult cardiac Rehab Medical management of residual CAD. Hemodynamics Rest Ao:: 147/86/114 Final Ao: 156/98/123 LV: 119/14 Recommendations Recommendations: PCI without planned CABG Radiation Exposure (mGy) 3030 Contrast (mls) 120 Anesthesia Moderate 9892-8876 Procedural Complication(s) None Disposition ICU I attest to the content of the Intraoperative Record and any orders documented therein. Any exceptions are noted below. [facility] Card Cath Procedure Codes Cardiac Catheterization Procedure 1: Cardiovascular Cath Procedures: 72126 Coronaries and LHC (+/-LV) Therapeutic Services & Ancillary Procedure 1: Cardiovascular Tx and Anc Procedures: 54514 IV Ultrasound (Coronary or Graft) Procedure 2: Cardiovascular Tx and Anc Procedures: 45387 Perc Coronary Thrombectomy Moderate Sedation Procedure 1: Sedation/Anesthesia: 89783 Mod Sedation by the same physician;Init15 Min Child Age 5 & Up Procedure 2: Sedation/Anesthesia: 62813 Mod Sedation by the same physician; Ea [id number] Minutes Stenting Procedure 1: Cardiovascular Stent Procedures: 05654 [facility] transluminal revascularization of acute sub/total occl, aMI PG Care Time/CCT Total # of Minutes Spent Total Time Spent with Patient: Total time spent is greater than 50% in coordination of care (as documented) at patient's floor/unit and/or counseling patient:
[2024-06-29] MEDS ORDERED: GLUCOSE 40% GEL 15 GM TUBE PO PRN (21:11)
[2024-06-29] MEDS ORDERED: DEXTROSE 50% 50 ML SYRINGE IV PRN (21:11)
[2024-06-29] MEDS ORDERED: ICU Protocol for HYPERglycemia SCH (21:11)
[2024-06-29] MEDS ORDERED: GLUCAGON FOR INJ 1 MG VIAL SQ PRN (21:11)
[2024-06-29] MEDS ORDERED: GLUCOSE 10 TAB/TUBE PO PRN (21:11)
[2024-06-29] MEDS ORDERED: CARBOHYDRATES FOR HYPOGLYCEMIA PO PRN (21:11)
--- NOTE | 2024-06-29 21:11 | Critical Care Consultation ---
Date of Consultation June 29, 2024 Assessment & Plan (1) STEMI (ST elevation myocardial infarction): (2) CAD in [place] artery: (3) Hyperlipidemia: (4) Insulin-requiring or dependent type II diabetes mellitus: (5) Morbid obesity with BMI of 45.0-49.9, adult: Plan Reason Critically Ill: 53 YOM presents with chest pian, known CAD with in stent stenosis/thrombus to his D1 requiring intervention on 06/26/24, noted residual CAD with medical management, arrives today with CP and noted with thrombus removal from LAD and plasty of D1. On Integrilin infusion and to ICU for hemodynamic monitoring and symptom management. Neuro - Likely has undiagnosed cognitive/dementia vs. psychiatric illness or combination of these, hx of depression - Likely this is effecting his ability to retain information as well as take his medications in a reliable fashion- he reports that he had a pill box, but it is broken- his new medications came in the mail and he could not remember what they were for so did not take any of them. He ling not remember what he did with his discharge instructions. - Case management consult placed for evaluation of assistance while at home for medication adherence as well as follow up- He does report his PCP is Dr. Guthrie in [facility] - Contacts listed - Sister Elva Guy, and Ruby Addison- who he believes may be his step-mother. - Continue his Seroquel Cardiac - Thrombus removal from LAD, CAD with multiple stents to [place] coronar ies, STEMI, HTN, HLD - Status post Coronary angiography with LV gram- clot removed from LAD and angio to D1 and IVUS - Continue Integrilin infusion per interventional cardiology - DAPT as previous - ASA and prasugrel - Continue Atorvastatin - Continue FRANCESCO/ARB - Further GDMT per cardiology/PCP - Hemodynamics stable post cath - no vasopressors/dilators currently- LVEDP 19 noted Respiratory - No acute needs at this time GI - No acute needs at this time - Continue PPI - Diet advance as tolerated RENAL/LYTES - NO acute needs -ICU electrolyte protocol - No acute needs ENDO - DMII - [id number] on previous- ICU hyperglycemic protocol - Hold Trulicity - Basal/bolus insulin HEME - No acute needs ID - No concern for infectious etiology at this time LINES/IV ACCESS - PIV Continue use of thes lines DVT PROPHYLAXIS - SCDS, Integrilin infusion, ASA/Plavix, ambulation DISPO: ICU overnight for monitoring of hemodynamics and symptomatology. I have personally spent 45 minutes of time in the direct management of this patient. This is a life/limb threatening event. This includes time spent evaluating patient, direct bedside care, chart review, placing orders, inte rpretation of diagnostic studies, discussion with consultants, patient, and family members, as well as other required patient management activities. This time is exclusive of all separately billable procedures, and separate from and in addition to any other critical care service time. Thank you for allowing us to participate in the care of this patient. Please refer to my attending physician's documentation for any further recommendations. History of Present Illness History of Present Illness 53 YOM with history of CAD with stents, DM, HLD, lumbar DJD. Patient is s/p STEMI with plasty/clot removal within stent stenosis of previous D1 he had an overlapping stent placed on 06/26/24 to his D1. He was discharged on 06/27/24 on DAPT therapy of ASA and Plavix, Atorvastatin, Losartan, Protonix, and SL NTG. Patient reports to the EMD today 06/29/24 for chest pain, which he reported on arrival as same symtpoms as previous. There was concern for ECG changes and heart alert was called. He was taken urgently to the [facility] and underwent coronary angio and LV gram. He was noted to have some thrombus in his LAD for which this was evacuated and assessed with IVUS as well as angio to D1, no further interventions reported. Patient was brought to the ICU awake, alert, currently pain free and hemodynamically stable without need for vasopressors. Radial access site is with TR band on and no hematoma or bleeding noted. Patient reports that he is not sure what medications he took today, but thinks he has not picked up any of his "blood thinners" from the pharmacy yet, and he has a bunch of pills on his table at home, and is not sure which ones to take, so he was going to call the cardiology office on Sunday. Patient also poor historian and noted mention of memory loss or memory issues noted through his medical record. Will place case management consult as patient likely to need close follow up following this admission for medication management and follow ups. CODE: FULL Allergies Allergy/AdvReac Type Severity Reaction Status Date / Time No Known Drug Allergies Allergy na Verified 06/26/24 03:03 Home Medications Medication Instructions Recorded Confirmed Type aspirin 81 mg tablet,delayed 81 mg PO QAM #30 tabs 06/27/24 Rx release atorvastatin 40 mg tablet 80 mg (2 x 40 mg) PO QAM #30 tabs 06/27/24 Rx clopidogrel 75 mg tablet 75 mg PO QAM #30 tabs 06/27/24 Rx losartan 25 mg tablet 25 mg PO QAM #30 tabs 06/27/24 Rx nitroglycerin 0.4 mg sublingual 0.4 mg sublingual Q5M PRN chest 06/27/24 Rx tablet (Nitrostat) pain #15 tabs pantoprazole 40 mg tablet,delayed 40 mg PO DAILY #30 tabs 06/27/24 Rx release albuterol sulfate 90 mcg/actuation 2 puff inhalation Q6H PRN sob 06/29/24 History aerosol inhaler (Ventolin HFA) dulaglutide 0.75 mg/0.5 mL 0.75 mg subcut WK 06/29/24 History subcutaneous pen injector (Trulicity) empagliflozin 10 mg tablet 10 mg PO DAILY 06/29/24 History (Jardiance) famotidine 20 mg tablet 20 mg PO BID PRN Other 06/29/24 History insulin glargine 100 unit/mL (3 42 unit subcut DIRECTED 06/29/24 History mL) subcutaneous pen (Lantus Solostar U-100 Insulin) insulin lispro 100 unit/mL See Rx Instructions .Route .COMPLEX 06/29/24 History subcutaneous pen (Humalog KwikPen (U-100) Insulin) quetiapine 50 mg tablet 50 - 100 mg PO HS PRN Other 06/29/24 History trazodone 50 mg tablet 50 mg PO HS PRN Sleep 06/29/24 History Patient History Medical History (Updated 06/29/24 @ 20:59 by TIM Pearson) Diabetes Lumbar degenerative disc disease Memory loss Blindness of right eye Peripheral neuropathy Social History Smoking Status: Never smoker Hx Alcohol Use: No Hx Substance Use: No Preferred Language: Hungarian Communication Ability: Effective Jazz Musician Required: No Beliefs That Will Affect Care: None Current Living Situation: Alone Feels Safe at Home: Yes Safety Concerns: Feels Safe At This Time Assistive Devices: Denture - Upper, Denture - Lower and Scooter/Electric Scooter Review of Systems Review of Systems: unable to obtain full ROS secondary to patient's ability to recall events/history or stay on topic Physical Exam Physical Exam: PHYSICAL EXAM: General: awake, alert, no apparent distress Head: Normocephalic, atraumatic ENT: PERRL, EOMI, no pharyngeal exudate, mucous membranes moist Neuro: AAO x 3, speech clear, rapid, tangentile, strength intact bilaterally 5/5, no pronator drift Chest: equal rise and fall of the chest, no accessory muscle use, no heaves or thrills, Clear to auscultation, on room air, Cardiac: Regular rate and rhythm, telemetry reviewed- NSR, skin warm dry, cap refill <3 seconds, peripheral pulses +2 no JVD, S1/S2, radial access site with TR band on, no hematoma,sensation and movement in distal hand appropriate. GI: NABS x 4 quadrants, soft, nontender to palpation, no rebound, guarding or tenderness : Spontaneously voiding, Results & Data Results & Data Vital Signs (Past 12 Hours) Vital Signs Temp Pulse Pulse Resp BP BP Pulse Ox 06/29/24 18:21 87 23 145/91 H 95 06/29/24 17:29 90 12 126/78 95 06/29/24 16:57 89 L 06/29/24 16:57 94 06/29/24 16:57 89 L 06/29/24 16:55 80 06/29/24 16:45 36.6 C 87 16 153/97 H 95 O2 Del Method O2 Flow Rate 06/29/24 18:21 Nasal Cannula 3 06/29/24 17:29 Nasal Cannula 3 06/29/24 16:57 Nasal Cannula 0 06/29/24 16:57 Room Air 2 06/29/24 16:57 Room Air 06/29/24 16:55 06/29/24 16:45 Room Air Laboratory Results Abnormal lab results 06/29/24 06/29/24 06/29/24 Range/Units 16:44 16:53 17:58 Neut # (Auto) 7.45 H (1.40-6.50) K/uL Wake # (Auto) 0.74 H (0.11-0.59) K/uL Activ Coag Time Kaolin (94-140) SECONDS Sodium 133 L (136-145) mmol/L POC Chloride 96 L (101-112) mmol/L Glucose 327 H* (70-99(Fasting)) mg/dl POC Glucose (other) 331 H (70-99) mg/dl Calcium 7.7 L (8.6-10.3) mg/dl POC Ioniz Calcium Tami 1.01 L (1.12-1.32) mmol/l Alkaline Phosphatase 129 H (34-104) U/L Troponin I High Sens 2155.4 H* 1522.7 H* D (0-20) pg/ml 06/29/24 06/29/24 Range/Units 19:23 19:43 Neut # (Auto) (1.40-6.50) K/uL Wake # (Auto) (0.11-0.59) K/uL Activ Coag Time Kaolin 208 H 238 H (94-140) SECONDS Sodium (136-145) mmol/L POC Chloride (101-112) mmol/L Glucose (70-99(Fasting)) mg/dl POC Glucose (other) (70-99) mg/dl Calcium (8.6-10.3) mg/dl POC Ioniz Calcium Tami (1.12-1.32) mmol/l Alkaline Phosphatase (34-104) U/L Troponin I High Sens (0-20) pg/ml Diagnostic Findings Chest X-Ray 06/29/24 16:50 XR chest 1V portable HISTORY: 53 years-old Male Chest pain, nonspecific COMPARISON: 06/26/2024 TECHNIQUE: AP view of the chest FINDINGS: Cardiac silhouette is unchanged. No pneumothorax or overt pulmonary edema. Unchanged blunting of the costophrenic angles. No large pleural effusion. Bones appear grossly intact. IMPRESSION: Cardiomegaly without acute process of the chest. ACT 112: Negative or not required by law. The above report was generated using voice recognition software. It may contain grammatical, syntax or spelling errors. Electronically signed by: Almas Vieira M.D. 06/29/2024 5:57 PM Medications Administered Home Medications aspirin 81 mg tablet,delayed release 81 mg PO QAM #30 tabs 06/27/24 [Rx] atorvastatin 40 mg tablet 80 mg (2 x 40 mg) PO QAM #30 tabs 06/27/24 [Rx] clopidogrel 75 mg tablet 75 mg PO QAM #30 tabs 06/27/24 [Rx] losartan 25 mg tablet 25 mg PO QAM #30 tabs 06/27/24 [Rx] nitroglycerin 0.4 mg sublingual tablet (Nitrostat) 0.4 mg sublingual Q5M PRN chest pain #15 tabs 06/27/24 [Rx] pantoprazole 40 mg tablet,delayed release 40 mg PO DAILY #30 tabs 06/27/24 [Rx] albuterol sulfate 90 mcg/actuation aerosol inhaler (Ventolin HFA) 2 puff inhalation Q6H PRN sob 06/29/24 [History] dulaglutide 0.75 mg/0.5 mL subcutaneous pen injector (Trulicity) 0.75 mg subcut WK 06/29/24 [History] empagliflozin 10 mg tablet (Jardiance) 10 mg PO DAILY 06/29/24 [History] famotidine 20 mg tablet 20 mg PO BID PRN Other 06/29/24 [History] insulin glargine 100 unit/mL (3 mL) subcutaneous pen (Lantus Solostar U-100 In sulin) 42 unit subcut DIRECTED 06/29/24 [History] insulin lispro 100 unit/mL subcutaneous pen (Humalog KwikPen (U-100) Insulin) See Rx Instructions .Route .COMPLEX 06/29/24 [History] quetiapine 50 mg tablet 50 - 100 mg PO HS PRN Other 06/29/24 [History] trazodone 50 mg tablet 50 mg PO HS PRN Sleep 06/29/24 [History] Active Medications Aspirin (Aspirin 81 Mg Ectab) 81 mg PO QAM TYLOR Stop: 07/30/24 08:59 Atorvastatin Calcium (Atorvastatin 40 Mg Tab) 80 mg PO QAM TYLOR Stop: 07/30/24 08:59 Eptifibatide (Eptifibatide Bolus/Drip) 1 each IV NOW STA Stop: 06/29/24 20:14 Eptifibatide (Integrilin) 75 mg in 100 mls @ 0 mls/hr IV .Q0M TYLOR; Protocol Stop: 06/29/24 22:14 Losartan Potassium (Losartan Potassium 25 Mg Tab) 25 mg PO QAM TYLOR Stop: 07/30/24 08:59 Miscellaneous (Icu Protocol For Hyperglycemia) 1 each N/A ACHS TYLOR Stop: 07/01/24 20:59 Miscellaneous (Stat Iv Infusion Titration Per Protocol) 1 each N/A NOW STA Stop: 06/29/24 20:14 Ondansetron HCl (Ondansetron Inj 2 Mg/Ml 2 Ml Vial) 4 mg IV Q6H PRN PRN Reason: Nausea And Vomiting Stop: 07/29/24 20:08 Pantoprazole Sodium (Pantoprazole 40 Mg Tab) 40 mg PO DAILY TYLOR Stop: 07/30/24 08:59 Prasugrel (Prasugrel Tab 10 Mg Tab) 10 mg PO QAM [facility] Stop: 07/30/24 08:59 Discontinued Medications Clopidogrel Bisulfate (Clopidogrel Bisulfate 300 Mg Tab) 300 mg PO NOW STA Stop: 06/29/24 16:52 Last Admin: 06/29/24 17:11 Dose: 300 mg Documented By: CRYSTAL Eptifibatide (Eptifibatide 2 Mg/Ml 10 Ml Vial (Chef Use Only)) Confirm Administered Dose 20 mg IV .STK-MED ONE Stop: 06/29/24 19:30 Last Admin: 06/29/24 19:36 Dose: 11.3 ml Documented By: PHAM Eptifibatide (Eptifibatide 2 Mg/Ml 10 Ml Vial (Chef Use Only)) Confirm Administered Dose 20 mg IV .STK-MED ONE Stop: 06/29/24 19:43 Last Admin: 06/29/24 19:51 Dose: 11.3 ml Documented By: PHAM Eptifibatide (Eptifibatide 0.75 Mg/Ml 75mg Vial (Chef Use Only)) Confirm Administered Dose 75 mg IV .STK-MED ONE Stop: 06/29/24 19:45 Last Increment: 06/29/24 19:52 Dose: 15 mg Documented By: PHAM Eptifibatide (Eptifibatide 2 Mg/Ml 10 Ml Vial (Chef Use Only)) Confirm Administered Dose 20 mg IV .STK-MED ONE Stop: 06/29/24 19:51 Last Admin: 06/29/24 19:52 Dose: 11.3 ml Documented By: PHAM Fentanyl Citrate (Fentanyl Citrate Pf 100 Mcg/2 Ml Vial) 50 mcg IV NOW STA Stop: 06/29/24 17:19 Last Admin: 06/29/24 17:24 Dose: 50 mcg Documented By: CRYSTAL Fentanyl Citrate (Fentanyl Citrate Pf 100 Mcg/2 Ml Vial) 50 mcg IV NOW STA Stop: 06/29/24 18:05 Last Admin: 06/29/24 18:19 Dose: 50 mcg Documented By: CRYSTAL Fentanyl Citrate (Fentanyl Citrate Pf 100 Mcg/2 Ml Vial) Confirm Administered Dose 100 mcg .ROUTE .STK-MED ONE Stop: 06/29/24 18:38 Last Increment: 06/29/24 20:06 Dose: 50 mcg Documented By: PHAM Heparin Sodium (Porcine) (Heparin Sod (Porcine) 1000 Unit/Ml) 1 units IV NOW ONE Stop: 06/29/24 17:08 Last Admin: 06/29/24 17:38 Dose: Not Given Documented By: CRYSTAL Heparin Sodium (Porcine) (Heparin Sod (Porcine) 1000 Unit/Ml) 4,000 units IV NOW ONE Stop: 06/29/24 17:46 Last Admin: 06/29/24 17:37 Dose: 4,000 units Documented By: CRYSTAL Co-signed By: SERAFIN Heparin Sodium (Porcine) (Heparin (Porcine) 1000 Unit/Ml 10 Ml (Chef Use Only)) Confirm Administered Dose 10,000 units .ROUTE .STK-MED ONE Stop: 06/29/24 18:38 Last Admin: 06/29/24 20:07 Dose: 12,000 units Documented By: PHAM Heparin Sodium (Porcine) (Heparin (Porcine) 1000 Unit/Ml 10 Ml (Chef Use Only)) Confirm Administered Dose 10,000 units .ROUTE .STK-MED ONE Stop: 06/29/24 19:48 Last Admin: 06/29/24 20:09 Dose: Not Given Documented By: PHAM Heparin Sodium/Dextrose (Heparin Iv Adult Wt-Based Low-Dose W/ Initial Bolus Protocol) 1 each IV NOW STA; Protocol Stop: 06/29/24 16:52 Last Admin: 06/29/24 17:38 Dose: Not Given Documented By: CRYSTAL Heparin Sodium/Sodium Chloride (Heparin In Nss Infusion 1000 Unit/500 Ml (2 U/Ml) Bag) Confirm Administered Dose 3,000 units IV .STK-MED ONE Stop: 06/29/24 18:38 Last Admin: 06/29/24 19:09 Dose: 3,000 units Documented By: PHAM Heparin Sodium/Dextrose (Heparin Sodium/Dextrose) 25,000 units in 500 mls @ 20 mls/hr IV .Q24H TYLOR; Protocol Stop: 07/29/24 17:14 Last Titration: 06/29/24 20:54 Dose: Infused Documented By: BRANDY Co-signed By: THAI Admin: 06/29/24 17:37 Dose: 1,000 units/hr, 20 mls/hr Documented By: CRYSTAL Co-signed By: SERAFIN Ioversol (Optiray 350) Confirm Administered Dose 1 ml .ROUTE .STK-MED ONE Stop: 06/29/24 18:39 Last Admin: 06/29/24 20:07 Dose: 120 ml Documented By: PHAM Midazolam HCl (Midazolam Hcl 1 Mg/Ml 2ml Vial) Confirm Administered Dose 2 mg .ROUTE .STK-MED ONE Stop: 06/29/24 18:37 Last Increment: 06/29/24 20:06 Dose: 1 mg Documented By: PHAM Nicardipine HCl (Nicardipine Hcl Inj 2.5 Mg/Ml 10 Ml Amp) Confirm Administered Dose 25 mg .ROUTE .STK-MED ONE Stop: 06/29/24 18:38 Last Admin: 06/29/24 19:09 Dose: 25 mg Documented By: PHAM Nitroglycerin (Nitroglycerin Sl 0.4 Mg/Tab Tab) 0.4 mg SL NOW STA Stop: 06/29/24 17:19 Last Admin: 06/29/24 17:23 Dose: 0.4 mg Documented By: CRYSTAL Nitroglycerin/Dextrose (Nitroglycerin/D5w 100mcg/Ml 20ml Syr) Confirm Administered Dose 2,000 mcg .ROUTE .STK-MED ONE Stop: 06/29/24 18:39 Last Admin: 06/29/24 19:09 Dose: 2,000 mcg Documented By: PHAM Prasugrel (Prasugrel Tab 10 Mg Tab) Confirm Administered Dose 60 mg PO .STK-MED ONE Stop: 06/29/24 20:05 Last Admin: 06/29/24 20:10 Dose: 60 mg Documented By: PHAM ECG Additional Comments: 20:23 Normal sinus rhythm PossibleLeft atrial enlargement Left anterior fascicular block Cannot rule outAnterior infarct(cited on or [id number]) Abnormal ECG When compared with ECG [id number] 20:32,(unconfirmed) No significant change was found 18:08 Normal sinus rhythm Left anterior fascicular block Minimal voltage criteria for LVH, may be normal variant(Tye product) ST elevation consider lateral injury or acute infarct ACUTE MO / STEMI Abnormal ECG When compared with ECG [id number] 16:44,(unconfirmed) Right bundle branch blockis no longerPresent Coding Level of Care Code 05370 IN/OBS CONSULT LVL 3,45M Diagnoses STEMI (ST elevation myocardial infarction) I21.3 Involved coronary artery: unspecified coronary artery CAD in [place] artery I25.10 Hyperlipidemia E78.5 Insulin-requiring or dependent type II diabetes mellitus E11.9; Z79.4 Morbid obesity with BMI of 45.0-49.9, adult E66.01; Z68.42 (1) STEMI (ST elevation myocardial infarction) Involved coronary artery: unspecified coronary artery Qualified Code(s): I21.3 - ST elevation (STEMI) myocardial infarction of unspecified site
[2024-06-29] MEDS ORDERED: FAMOTIDINE 20 MG TAB PO PRN (21:22)
[2024-06-29] MEDS ORDERED: ALBUTEROL HFA 8 GM INHALER INH PRN (21:22)
[2024-06-29] MEDS: ICU Protocol for HYPERglycemia SCH (21:28)
[2024-06-29] MEDS: LANTUS PER UNIT CHARGE SQ SCH (21:42)
[2024-06-29] MEDS: INSULIN ASPART PER UNIT CHARGE SC SCH (21:43)
[2024-06-29] MEDS: QUEtiapine FUMARATE 100 MG TABLET PO SCH (21:47)
[2024-06-30 01:16] LABS: ANTI-Xa, UFH(UnfractionatedHep < 0.10 IU/ml (0.3-0.7)
[2024-06-30 04:43] LABS: BUN Creatinine Ratio 9.9 (10-20); Calcium 7.4 mg/dl (8.6-10.3); Creatinine Clr Calc Pharmacy 136.2 ml/min; Potassium 3.9 mmol/L (3.5-5.1)
[2024-06-30 04:45] LABS: Basophils # (auto) 0.03 K/uL (0.00-0.20); Basophils % (auto) 0.3 %; Eosinophils # (auto) 0.22 K/uL (0.00-0.50); Eosinophils % (auto) 2.2 %; Hematocrit (blood only) 45.3 % (42.0-52.0); Hemoglobin 15.1 g/dl (14.0-18.0); Immature Granulocytes # (auto) 0.06 K/uL (0.01-0.20); Immature Granulocytes % (auto) 0.6 %; Lymphocytes # (auto) 1.85 K/uL (1.20-3.40); Lymphocytes % (auto) 18.9 %; Mean Corpuscular Hemoglobin 29.4 pg (25.0-34.0); Mean Corpuscular Hgb Conc 33.3 g/dL (32.0-36.0); Mean Corpuscular Volume 88.1 fL (80.0-100.0); Monocytes % (auto) 7.1 %; Neutrophils # (auto) 6.94 K/uL (1.40-6.50); Neutrophils % (auto) 70.9 %; Platelet Count 227 K/uL (130-400); RDW Coefficient of Variation 13.2 % (11.5-14.5); RDW Standard Deviation 42.5 fL (36.4-46.3); Red Blood Count 5.14 M/uL (4.70-6.10)
--- NOTE | 2024-06-30 07:49 | Critical Care Progress Note ---
Date of Service June 30, 2024 Assessment & Plan (1) STEMI (ST elevation myocardial infarction): (2) Morbid obesity with BMI of 45.0-49.9, adult: (3) Chest pain due to CAD: Plan Impression: 53-year-old male with known coronary disease presenting to the emergency room with ST elevation myocardial infarction status post cardiac catheterization with subacute in-stent thrombosis status post redilatation, thrombectomy, and dual antiplatelet agents with DOAC. LVEDP was elevated. He is having some mild chest pain this morning. Recommendations: 1. Coronary disease with subacute in-stent thrombosis: Received Integrilin. Continue dual antiplatelet therapy as well as DOAC. 2. Chest pain this morning: Follow-up EKG ordered. Will discuss with cardiology if EKG demonstrates any persistent changes. 3. Continue Cozaar. Will need beta-whit if pressure can hold. 4. Diabetes: Continue glycemic control per protocol. 5. Out of bed to chair as tolerated. Will discuss with cardiology, can potentially transfer out of the ICU today. If so, critical care services will sign off. Admission and Anticipated Discharge Date Admission Date: June 29, 2024 Subjective Patient seen and examined. EMR reviewed. Discussed with overnight critical care SHEILA. Reviewed on multidisciplinary rounds. Patient is currently awake alert conversant and sitting up eating breakfast. He reports the onset of chest pain which he rates as 1-2 out of 10 over his left sternum. He states this started about 10 minutes ago and is not associated with any nausea vomiting or shortness of breath. EKG currently pending. He remains hemodynamically stable. Has not had any issues at his cardiac catheterization site. He denies any numbness tingling or paresthesias. No other complaints Review of Systems Review of Systems: All systems reviewed & are unremarkable except as noted in Subjective Physical Exam Constitutional: WD/WN, vitals as above Neck: trachea midline, no thyromegaly Respiratory: normal respiratory effort, lungs clear to auscultation Cardiovascular: RRR, no murmur, no edema Gastrointestinal (Abdomen): normal bowel sounds, soft, nontender, no hepatosplenomegaly Musculoskeletal: Extremities: extremities normal to inspection Skin: no rashes, warm and dry Neurologic: Nonfocal exam Lymphatic: no cervical lymphadenopathy Results & Data Results & Data Vital Signs (Past 12 Hours) Vital Signs Temp Pulse Pulse Resp BP BP Pulse Ox 06/30/24 07:00 37.0 C 10/14/24 04:21 86 06/30/24 04:03 75 11 L 97 06/30/24 04:00 164/86 H 06/30/24 03:57 76 5 L 97 06/30/24 03:42 78 12 97 06/30/24 03:27 78 12 95 06/30/24 02:51 78 17 97 06/30/24 02:00 78 13 95 06/30/24 02:00 135/75 06/30/24 01:30 82 11 L 94 06/30/24 01:00 147/78 H 06/30/24 01:00 78 10 L 96 06/30/24 00:53 36.5 C 06/30/24 00:30 90 11 L 96 06/30/24 00:00 87 13 97 06/30/24 00:00 131/86 06/30/24 00:00 131/86 06/29/24 23:48 87 13 96 06/29/24 23:18 93 H 23 96 06/29/24 23:00 135/99 06/29/24 22:39 86 19 97 06/29/24 22:33 84 11 L 97 06/29/24 22:12 81 14 97 06/29/24 22:01 142/103 H 06/29/24 21:57 84 18 98 06/29/24 21:45 86 17 97 06/29/24 21:03 87 14 93 06/29/24 21:01 36.4 C L 89 18 140/101 H 94 06/29/24 21:00 145/97 H 06/29/24 20:48 140/101 H 06/29/24 20:46 168/127 H 06/29/24 20:42 90 20 83 L 06/29/24 20:39 93 H 22 95 O2 Del Method 06/30/24 07:00 06/30/24 04:21 06/30/24 04:03 06/30/24 04:00 06/30/24 03:57 06/30/24 03:42 06/30/24 03:27 06/30/24 02:51 06/30/24 02:00 06/30/24 02:00 06/30/24 01:30 06/30/24 01:00 06/30/24 01:00 06/30/24 00:53 06/30/24 00:30 06/30/24 00:00 06/30/24 00:00 06/30/24 00:00 06/29/24 23:48 06/29/24 23:18 06/29/24 23:00 06/29/24 22:39 06/29/24 22:33 06/29/24 22:12 06/29/24 22:01 06/29/24 21:57 06/29/24 21:45 06/29/24 21:03 06/29/24 21:01 Room Air 06/29/24 21:00 06/29/24 20:48 06/29/24 20:46 06/29/24 20:42 06/29/24 20:39 Critical Care Results & Data Vital Signs (Past 12 Hours) Vital Signs Temp Pulse Pulse Resp BP BP Pulse Ox 06/30/24 07:00 37.0 C 06/30/24 04:21 86 06/30/24 04:03 75 11 L 97 06/30/24 04:00 164/86 H 06/30/24 03:57 76 5 L 97 06/30/24 03:42 78 12 97 06/30/24 03:27 78 12 95 06/30/24 02:51 78 17 97 06/30/24 02:00 78 13 95 06/30/24 02:00 135/75 06/30/24 01:30 82 11 L 94 06/30/24 01:00 147/78 H 06/30/24 01:00 78 10 L 96 06/30/24 00:53 36.5 C 06/30/24 00:30 90 11 L 96 06/30/24 00:00 87 13 97 06/30/24 00:00 131/86 06/30/24 00:00 131/86 06/29/24 23:48 87 13 96 06/29/24 23:18 93 H 23 96 06/29/24 23:00 135/99 06/29/24 22:39 86 19 97 06/29/24 22:33 84 11 L 97 06/29/24 22:12 81 14 97 06/29/24 22:01 142/103 H 06/29/24 21:57 84 18 98 06/29/24 21:45 86 17 97 06/29/24 21:03 87 14 93 06/29/24 21:01 36.4 C L 89 18 140/101 H 94 06/29/24 21:00 145/97 H 06/29/24 20:48 140/101 H 06/29/24 20:46 168/127 H 06/29/24 20:42 90 20 83 L 06/29/24 20:39 93 H 22 95 O2 Del Method 06/30/24 07:00 06/30/24 04:21 06/30/24 04:03 06/30/24 04:00 06/30/24 03:57 06/30/24 03:42 06/30/24 03:27 06/30/24 02:51 06/30/24 02:00 06/30/24 02:00 06/30/24 01:30 06/30/24 01:00 06/30/24 01:00 06/30/24 00:53 06/30/24 00:30 06/30/24 00:00 06/30/24 00:00 06/30/24 00:00 06/29/24 23:48 06/29/24 23:18 06/29/24 23:00 06/29/24 22:39 06/29/24 22:33 06/29/24 22:12 06/29/24 22:01 06/29/24 21:57 06/29/24 21:45 06/29/24 21:03 06/29/24 21:01 Room Air 06/29/24 21:00 06/29/24 20:48 06/29/24 20:46 06/29/24 20:42 06/29/24 20:39 Lab & Micro Results (Past 24 Hours) RBC 5.14 M/uL (4.70-6.10) 06/30/24 WBC 9.80 K/ul (4.8-10.8) 06/30/24 Hgb 15.1 g/dl (14.0-18.0) 06/30/24 Hct 45.3 % (42.0-52.0) 06/30/24 MCV 88.1 fL (80.0-100.0) 06/30/24 MCH 29.4 pg (25.0-34.0) 06/30/24 MCHC 33.3 g/dL (32.0-36.0) 06/30/24 RDW Standard Deviation 42.5 fL (36.4-46.3) 06/30/24 RDW Coefficient of Variation 13.2 % (11.5-14.5) 06/30/24 Plt Count 227 K/uL (130-400) 06/30/24 MPV 11.0 fL (9.4-12.4) 06/30/24 Neutrophils (%) (Auto) 70.9 % 06/30/24 Lymphocytes (%) (Auto) 18.9 % 06/30/24 Monocytes # (Auto) 0.70 K/uL (0.11-0.59) H 06/30/24 Eosinophils # (Auto) 0.22 K/uL (0.00-0.50) 06/30/24 Immature Granulocyte % (Auto) 0.6 % 06/30/24 Neutrophils # (Auto) 6.94 K/uL (1.40-6.50) H 06/30/24 Lymphocytes # (Auto) 1.85 K/uL (1.20-3.40) 06/30/24 Monocytes # (Auto) 0.70 K/uL (0.11-0.59) H 06/30/24 Eosinophils # (Auto) 0.22 K/uL (0.00-0.50) 06/30/24 Basophils # (Auto) 0.03 K/uL (0.00-0.20) 06/30/24 Immature Granulocyte # (Auto) 0.06 K/uL (0.01-0.20) 4 Na 137 mmol/L (136-145) 06/30/24 K 3.9 mmol/L (3.5-5.1) 06/30/24 Cl 102 mmol/L (98-107) 06/30/24 CO2 30 mmol/L (21-32) 06/30/24 Anion Gap 5 (3-11) 06/30/24 BUN 9 mg/dl (6-23) 06/30/24 Creatinine 0.91 mg/dl (0.6-1.4) 06/30/24 BUN/Creatinine Ratio 9.9 (10-20) L 06/30/24 Glu 118 mg/dl (70-99(Fasting)) H 06/30/24 Ca 7.4 mg/dl (8.6-10.3) L 06/30/24 Total Bilirubin 0.4 mg/dl (0.2-1.0) 06/29/24 AST 25 U/L (13-39) 06/29/24 ALT 18 U/L (7-52) 06/29/24 Alkaline Phosphatase 129 U/L (34-104) H 06/29/24 TP 6.9 gm/dl (6.0-8.3) 06/29/24 Albumin 3.6 gm/dl (3.4-5.0) 06/29/24 Globulin 3.3 gm/dl (2.5-4.0) 06/29/24 Albumin/Globulin Ratio 1.1 (0.9-2) 06/29/24 Calcium Level 7.4 mg/dl (8.6-10.3) L 06/30/24 04:13 Prothromb Time International Ratio 1.0 (0.9-1.1) 06/29/24 16:4 4 Diagnostic Findings (Past 24 Hours) Chest X-Ray 06/29/24 16:50 XR chest 1V portable HISTORY: 53 years-old Male Chest pain, nonspecific COMPARISON: 06/26/2024 TECHNIQUE: AP view of the chest FINDINGS: Cardiac silhouette is unchanged. No pneumothorax or overt pulmonary edema. Unchanged blunting of the costophrenic angles. No large pleural effusion. Bones appear grossly intact. IMPRESSION: Cardiomegaly without acute process of the chest. ACT 112: Negative or not required by law. The above report was generated using voice recognition software. It may contain grammatical, syntax or spelling errors. Electronically signed by: Almas Vieira M.D. 06/29/2024 5:57 PM I & O Totals 24 Hours 06/29/24 06/30/24 07/01/24 06:59 06:59 06:59 Intake Total 550 / 550 Balance 550 / 550 Cumulative 06/29/24 16:21 thru 06/30/24 04:13 Intake Total 550 Balance 550 RT Ventilator Mngmt (Last Documented) Ventilator Ordered Settings Respiratory Rate 11 06/30/24 04:03 Ventilator - PT Measurements Respiratory Rate 11 Coding Level of Care Code 85688 SUB INP/OBS CARE 2/35MIN Diagnoses STEMI (ST elevation myocardial infarction) I21.3 Morbid obesity with BMI of 45.0-49.9, adult E66.01; Z68.42 Chest pain due to CAD I25.119
[2024-06-30] MEDS: ASPIRIN 81 MG ECTAB PO SCH (08:24)
[2024-06-30] MEDS: PANTOprazole 40 MG TAB PO SCH (08:25)
[2024-06-30] MEDS: LOSARTAN POTASSIUM 25 MG TAB PO SCH (08:25)
[2024-06-30] MEDS: ATORVASTATIN 40 MG TAB PO SCH (08:25)
--- NOTE | 2024-06-30 08:25 | Electrocardiogram Report ---
Test Reason : Blood Pressure : */* mmHG Vent. Rate : 92 BPM Atrial Rate : 92 BPM P-R Int : 164 ms QRS Dur : 114 ms QT Int : 402 ms P-R-T Axes : 62 -76 56 degrees QTcB Int : 497 ms Normal sinus rhythm Right bundle branch block Left anterior fascicular block Acute Lateral infarct Abnormal ECG When compared with ECG of 27-Jun-2024 00:20, Criteria for Lateral infarct now present Confirmed by Zeus Sharma ([id number]) on 06/30/2024 8:25:14 AM Referred By: REFERRED SELF Confirmed By: Zeus Sharma
[2024-06-30] MEDS: PRASugrel TAB 10 MG TAB PO SCH (08:26)
[2024-06-30] MEDS: METOPROLOL TARTRATE 25 MG TAB PO SCH (08:27)
--- NOTE | 2024-06-30 08:27 | Electrocardiogram Report ---
Test Reason : Blood Pressure : */* mmHG Vent. Rate : 78 BPM Atrial Rate : 78 BPM P-R Int : 172 ms QRS Dur : 120 ms QT Int : 426 ms P-R-T Axes : 46 -73 13 degrees QTcB Int : 485 ms Normal sinus rhythm Left anterior fascicular block Minimal voltage criteria for LVH, may be normal variant ( [place] product ) Acute Lateral infarct Abnormal ECG When compared with ECG of 29-Jun-2024 16:44, Right bundle branch block is no longer Present Confirmed by Zeus Sharma ([id number]) on 06/30/2024 8:27:11 AM Referred By: REFERRED SELF Confirmed By: Zeus Sharma
--- NOTE | 2024-06-30 08:32 | Electrocardiogram Report ---
Test Reason : Blood Pressure : */* mmHG Vent. Rate : 89 BPM Atrial Rate : 89 BPM P-R Int : 176 ms QRS Dur : 120 ms QT Int : 406 ms P-R-T Axes : 65 -82 90 degrees QTcB Int : 493 ms Poor data quality, interpretation may be adversely affected Normal sinus rhythm Left atrial enlargement Left axis deviation Minor ST elevation in Lateral leads Abnormal ECG When compared with ECG of 29-Jun-2024 18:08, ST elevation in Lateral leads nearly resolved Confirmed by Zeus Sharma ([id number]) on 06/30/2024 8:31:40 AM Referred By: REFERRED SELF Confirmed By: Zeus Sharma
--- NOTE | 2024-06-30 08:44 | XCELERA ---
[id number]
--- NOTE | 2024-06-30 08:48 | Cardiology Progress Note ---
Date of Service June 30, 2024 Assessment & Plan (1) CAD in grindstone artery: Plan: Subacute D1 stent thrombosis 06/29/2024. Mild residual thrombus in proximal LAD adhered to ostial LCx stent Post PCI with new TREE to first diagonal stent thrombosis 06/26/2024 Moderate to severe nonculprit disease (75 % right PLB, 50% mid LAD, patent LCx into OM 3 stents) 2. Preserved LV functionanterolateral wall motion abnormality 3. Type 2 ondtndalH1d 9.1 4. Mildly dilated aortic root/ascending aorta (4.1 cm) 5. Hypertension 6. Medical adherence difficulties Mild pleuritic chest pain this morning. ECG unchanged. Pain seems noncoronary related. Electrically stable overnight LV function unchanged on echo No access site complications Blood pressure elevated Continue DAPT with aspirin, prasugrel. Plan on DAPT indefinitely. We talked about importance of taking prasugrel every day. Will need to make sure he has at home and knows which medicine to take. Trend troponin until peak Continue current statin Continue losartan, started on metoprolol. Titrate up as able From a cardiac standpoint okay with transfer to telemetry today. Possibly home tomorrow Admission and Anticipated Discharge Date Admission Date: June 29, 2024 Subjective No issues overnight. Mild left-sided pleuritic chest pain this morning. ECG unchanged. No other new concerns. Telemetry reviewedno arrhythmia Review of Systems Review of Systems: All systems reviewed & are unremarkable except as noted in HPI & below Physical Exam Physical Exam: General: Comfortable HEENT: Sclerae anicteric Lungs: Clear to auscultation bilaterally Cardiac: Distant heart sounds, regular, no murmurs Vascular: Right radial artery access site with no hematoma. Distal pulse and sensation intact. Abdomen: Soft, nontender Extremities: Well perfused, no peripheral edema Neuro: Nonfocal Psych: Alert orient x3, normal affect and mood Results & Data Vital Signs (Past 12 Hours) Vital Signs Temp Pulse Pulse Resp BP BP Pulse Ox 06/30/24 07:00 98.6 F 06/30/24 04:21 86 06/30/24 04:03 75 11 L 97 06/30/24 04:00 164/86 H 06/30/24 03:57 76 5 L 97 06/30/24 03:42 78 12 97 06/30/24 03:27 78 12 95 06/30/24 02:51 78 17 97 06/30/24 02:00 78 13 95 06/30/24 02:00 135/75 06/30/24 01:30 82 11 L 94 06/30/24 01:00 147/78 H 06/30/24 01:00 78 10 L 96 06/30/24 00:53 97.7 F 06/30/24 00:30 90 11 L 96 06/30/24 00:00 87 13 97 06/30/24 00:00 131/86 06/30/24 00:00 131/86 06/29/24 23:48 87 13 96 06/29/24 23:18 93 H 23 96 06/29/24 23:00 135/99 06/29/24 22:39 86 19 97 06/29/24 22:33 84 11 L 97 06/29/24 22:12 81 14 97 06/29/24 22:01 142/103 H 06/29/24 21:57 84 18 98 06/29/24 21:45 86 17 97 06/29/24 21:03 87 14 93 06/29/24 21:01 97.5 F L 89 18 140/101 H 94 06/29/24 21:00 145/97 H 06/29/24 20:48 140/101 H 06/29/24 20:46 168/127 H 06/29/24 20:42 90 20 83 L 06/29/24 20:39 93 H 22 95 O2 Del Method 06/30/24 07:00 06/30/24 04:21 06/30/24 04:03 06/30/24 04:00 06/30/24 03:57 06/30/24 03:42 06/30/24 03:27 06/30/24 02:51 06/30/24 02:00 06/30/24 02:00 06/30/24 01:30 06/30/24 01:00 06/30/24 01:00 06/30/24 00:53 06/30/24 00:30 06/30/24 00:00 06/30/24 00:00 06/30/24 00:00 06/29/24 23:48 06/29/24 23:18 06/29/24 23:00 06/29/24 22:39 06/29/24 22:33 06/29/24 22:12 06/29/24 22:01 06/29/24 21:57 06/29/24 21:45 06/29/24 21:03 06/29/24 21:01 Room Air 06/29/24 21:00 06/29/24 20:48 06/29/24 20:46 06/29/24 20:42 06/29/24 20:39 PG Care Time/CCT Total # of Minutes Spent Total Time Spent with Patient: Total time spent is greater than 50% in coordination of care (as documented) at patient's floor/unit and/or counseling patient: Coding Level of Care Code 32911 SUB INP/OBS CARE 3/50MIN Diagnoses CAD in grindstone artery I25.10
[2024-06-30] MEDS ORDERED: ASPIRIN 81 MG ECTAB PO SCH (09:00)
[2024-06-30] MEDS: POTASSIUM CHLORIDE CRTAB 20 MEQ TABCR PO ONE (14:12)
[2024-06-30] MEDS: POTASSIUM CHLORIDE CRTAB 20 MEQ TABCR PO STA (14:48)
[2024-06-30] MEDS: LANTUS PER UNIT CHARGE SQ SCH (21:31)
[2024-06-30] MEDS: POLYETHYLENE (MIRALAX) 17 GM PACK PO PRN (21:32)
[2024-07-01 07:21] LABS: Basophils # (auto) 0.03 K/uL (0.00-0.20); Basophils % (auto) 0.3 %; Eosinophils # (auto) 0.27 K/uL (0.00-0.50); Eosinophils % (auto) 2.6 %; Hematocrit (blood only) 41.9 % (42.0-52.0); Immature Granulocytes # (auto) 0.04 K/uL (0.01-0.20); Immature Granulocytes % (auto) 0.4 %; Lymphocytes # (auto) 2.04 K/uL (1.20-3.40); Lymphocytes % (auto) 19.5 %; Mean Corpuscular Hemoglobin 29.5 pg (25.0-34.0); Mean Corpuscular Hgb Conc 33.4 g/dL (32.0-36.0); Mean Corpuscular Volume 88.2 fL (80.0-100.0); Mean Platelet Volume 10.8 fL (9.4-12.4); Monocytes # (auto) 0.84 K/uL (0.11-0.59); Neutrophils # (auto) 7.22 K/uL (1.40-6.50); Neutrophils % (auto) 69.2 %; Platelet Count 258 K/uL (130-400); RDW Coefficient of Variation 13.2 % (11.5-14.5); Red Blood Count 4.75 M/uL (4.70-6.10); White Blood Count 10.44 K/ul (4.8-10.8)
[2024-07-01 07:36] LABS: BUN Creatinine Ratio 9.2 (10-20); Calcium 7.5 mg/dl (8.6-10.3); Creatinine Clr Calc Pharmacy 113.7 ml/min; Potassium 4.3 mmol/L (3.5-5.1)
[2024-07-01 08:11] VITALS: RESP 16; TEMP 98.4; O2SAT 96
[2024-07-01] MEDS: GLYCERIN ADULT 12 SUPP/BOX SUPP PR ONE (08:37)
--- NOTE | 2024-07-01 08:47 | Hospitalist Progress Note ---
Date of Service June 30, 2024 Assessment & Plan (1) STEMI (ST elevation myocardial infarction): Plan: Assessment: 1. Acute heart alert with suspected lateral wall recurrent STEMI with ST elevation in leads I and aVL. Patient was just admitted 3 days ago with a lateral STEMI and went to the [facility] and had a stent placed in the first diagonal with an stent thrombosis at that time. The patient is uncertain if he is on Plavix currently or not. Highly suspicious for possible recurrent in- stent thrombosis. Interventional cardiology has been consulted. Tentative plan is for Dr. Arredondo to take the patient to the [facility] this evening for reinve stigation. 2. Coronary artery disease. Again recent STEMI. And what appears to be a recurrent probable STEMI. Appreciate input from Cardiology: Summary: 1. Lateral STEMI/proximal D1 subacute 100% stent thrombosis 2. Multivessel non-culprit coronary artery disease -40% R-PAV, 75% R-PLB - overlapping stents from ostium to mid circumflex into OM 3 widely patent 50% mid LAD stenosis 3. Apparent thrombus in ostial LAD adhered to ostial circumflex stent struts on IVUS 4. Normal intracardiac filling pressure. 5. Successful PCI of proximal 1st diagonal stent thrombosis with continuous a spiration thrombectomy and repeat angioplasty (2.75 NC to high atmospheres). Recommendations: Admit to ICU for continued monitoring Loaded with prasugrel 60 mg in [facility] Continue Integrilin for total of 3 hours Continue DAPT indefinitely Trend troponins until peak, repeat limited echo in a.m. Continue ARB High-dose statin Consult cardiac Rehab Anticipate discharge on 07/01 3. Morbid obesity. 4. Diabetes mellitus type 2 insulin requiring. Basal bolus insulin has been ordered. 5. Dyslipidemia. Continue statin therapy. 6. Hypertension continue home medications. 7. History of some memory loss and possible some mild cognitive impairment. Details not otherwise specified. 8. Right eye blindness. Plan: I discussed above. Please refer to orders for further planning. Admission and Anticipated Discharge Date Admission Date: June 29, 2024 Subjective 53 yo male reports no new symptoms. Review of Systems Review of Systems: All systems reviewed & are unremarkable except as noted in HPI & below Physical Exam Physical Exam: General: awake, alert, NAD Head: Normocephalic, atraumatic ENT: PERRL, EOMI, no pharyngeal exudate, mucous membranes moist Chest: eClear to auscultation, on room air, Cardiac: Regular rate and rhythm GI: NABS x 4 quadrants, soft, nontender to palpation, no rebound, guarding or tenderness Results & Data Results & Data Vital Signs (Past 12 Hours) Vital Signs Temp Pulse Pulse Resp BP Pulse Ox Pulse Ox 07/01/24 07:00 36.9 C 78 16 108/63 96 07/01/24 03:20 37.0 C 72 18 111/64 95 06/30/24 23:01 37.0 C 70 18 106/67 94 06/30/24 22:43 75 06/30/24 21:11 96 O2 Del Method O2 Del Method 07/01/24 07:00 Room Air 07/01/24 03:20 Room Air 06/30/24 23:01 Room Air 06/30/24 22:43 06/30/24 21:11 Room Air PG Care Time/CCT Total # of Minutes Spent Total Time Spent with Patient: Total time spent is greater than 50% in coordination of care (as documented) at patient's floor/unit and/or counseling patient: Coding Level of Care Code 39324 SUB INP/OBS CARE 2/35MIN Diagnoses STEMI (ST elevation myocardial infarction) I21.3
--- NOTE | 2024-07-01 11:23 | Electrocardiogram Report ---
Test Reason : Blood Pressure : */* mmHG Vent. Rate : 80 BPM Atrial Rate : 80 BPM P-R Int : 182 ms QRS Dur : 116 ms QT Int : 420 ms P-R-T Axes : 68 -81 44 degrees QTcB Int : 484 ms Normal sinus rhythm Left axis deviation Minor ST elevation in Lateral leads Abnormal ECG When compared with ECG of 29-Jun-2024 20:32, No significant change Confirmed by Zeus Sharma ([id number]) on 07/01/2024 11:22:43 AM Referred By: REFERRED SELF Confirmed By: Zeus Sharma
--- NOTE | 2024-07-01 11:24 | Electrocardiogram Report ---
Test Reason : Blood Pressure : */* mmHG Vent. Rate : 69 BPM Atrial Rate : 69 BPM P-R Int : 190 ms QRS Dur : 116 ms QT Int : 430 ms P-R-T Axes : 69 -82 -3 degrees QTcB Int : 460 ms Normal sinus rhythm Left anterior fascicular block Minor ST elevation in Lateral leads When compared with ECG of 30-Jun-2024 07:40, No significant change Confirmed by Zeus Sharma ([id number]) on 07/01/2024 11:23:49 AM Referred By: REFERRED SELF Confirmed By: Zeus Sharma
[2024-07-01] MEDS: SOD PHOSPHATE/SOD BIPHOSPHATE ENEMA 132 ML BTL PR STA (11:35)
--- NOTE | 2024-07-01 13:09 | Discharge Summary ---
Discharge Summary Date of Service July 01, 2024 Principal Dx & Hospital Course #1 = Principal Diagnosis (1) STEMI (ST elevation myocardial infarction): Assessment: 1. Acute heart alert with suspected lateral wall recurrent STEMI with ST el evation in leads I and aVL. Patient was just admitted 3 days ago with a lateral STEMI and went to the [facility] and had a stent placed in the first diagonal with an stent thrombosis at that time. The patient is uncertain if he is on Plavix currently or not. Highly suspicious for possible recurrent in-stent thrombosis. Interventional cardiology has been consulted. Tentative plan is for Dr. Arredondo to take the patient to the [facility] this evening for reinvestigation. 2. Coronary artery disease. Again recent STEMI. And what appears to be a recurrent probable STEMI. Appreciate input from Cardiology: Summary: 1. Lateral STEMI/proximal D1 subacute 100% stent thrombosis 2. Multivessel non-culprit coronary artery disease -40% R-PAV, 75% R-PLB - overlapping stents from ostium to mid circumflex into OM 3 widely patent 50% mid LAD stenosis 3. Apparent thrombus in ostial LAD adhered to ostial circumflex stent struts on IVUS 4. Normal intracardiac filling pressure. 5. Successful PCI of proximal 1st diagonal stent thrombosis with continuous aspiration thrombectomy and repeat angioplasty (2.75 NC to high atmospheres). Recommendations: Admit to ICU for continued monitoring Loaded with prasugrel 60 mg in [facility] Continue Integrilin for total of 3 hours Continue DAPT indefinitely Trended troponins until they peaked, repeat limited echo completed: no significant change. Continue ARB High-dose statin Consult cardiac Rehab Explained to patient importance to patient of not missing Prasugrel and ASA as this could lead to his He was sent with a 3 day supply of prasugrel as well as a script sent to the pharmacy electornically. They should deliver on 07/02 discharge on 07/01 3. Morbid obesity. 4. Diabetes mellitus type 2 insulin requiring. Basal bolus insulin has been ordered. 5. Dyslipidemia. Continue statin therapy. 6. Hypertension continue home medications. 7. History of some memory loss and possible some mild cognitive impairment. Details not otherwise specified. 8. Right eye blindness. Plan: I discussed above. Please refer to orders for further planning. Admission HPI Per Admitting Provider This is a 53-year-old male who was admitted on 06/26/[address] elevation myocardial infarction with [facility] and received an overlapping stent in his first diagonal. He had in-stent thrombosis at that time. He was discharged to home on the . He returns today with chest pain. It is unclear is whether or not the patient was taking his Plavix. Initially EKG in the field showed mild ST elevation in leads I and aVL. However while in the ER his ST segments of elevated more significantly with associated pain. He has been heparinized. A heart alert has been called. Interventional cardiology notified. Tentative plan is to go to the [facility]. Heparin drip has been initiated. The patient has had aspirin. His troponins are more elevated at approximately 350 compared to when he had his initial LA earlier this week. Will admit to the ICU consult critical care as well as interventional cardiology. Further recommendations to be forthcoming post cath. Discharge Exam General: awake, alert, NAD Head: Normocephalic, atraumatic ENT: PERRL, EOMI, no pharyngeal exudate, mucous membranes moist Chest: Clear to auscultation, on room air, Cardiac: Regular rate and rhythm GI: NABS x 4 quadrants, soft, nontender to palpation, no rebound, guarding or tenderness Discharge Plan Discharge Items Patient Disposition: Home - Home Health Services Reason For Visit: STEMI Discharge Diagnosis: STEMI Activity: Resume your previous activity Non-emergency contact: Primary Care Provider Call non-emergency contact if: you have any medication questions Follow-up/Referrals: Melody Guthrie NP [Primary Care Provider] - 07/03/24 10:45 am Diet: Carb Consistent or DM2 Addtl Attending Provider Instructions: Followup with PCP in 1-2 weeks. Remember to take your Prasugrel daily. Home Care: * Take your medications exactly as directed. Don't skip doses. * Remember that recovery after a heart attack takes time. Plan to rest for at lease 4-8 weeks while you recover. Then return to normal activity when your doctor says it's okay. * Ask your doctor about joining a heart rehabilitation program. * Tell your doctor if you are feeling depressed. Feelings of sadness are common after a heart attack, but it is important that you speak to someone if you are feeling overwhelmed by these feelings. * If you are having chest pain, call 911 for an ambulance. Do NOT drive yourself to the hospital. * Ask your family members to learn CPR. * Learn to take your own blood pressure and pulse. Keep a record of your results. Ask your doctor when you should seek emergency medical attention. He or she will tell you which blood pressure reading is dangerous. Lifestyle Changes: * Maintain a healthy weight. Get help to lose any extra pounds. * Cut back on salt. * Limit canned, dried, packaged, and fast foods. * Don't add salt to your food. * Season foods with herbs instead of salt when you cook. * Break the smoking habit. Enroll in a stop-smoking program to improve your chances of success. * Limit fatty foods. * Ask your doctor about having your lipid levels checked regularly. * Build up your activity according to your doctor's recommendation. * Ask your doctor when it's okay to resume sexual activity. * Tell your doctor about any erectile dysfunction (ED) medication you are taking. Some ED medications are not safe if you take certain heart medications. * Try to manage stress. Follow Up: It is important for you to keep your follow up appointments with your medical provider. Pending Studies at Discharge: No Stand-Alone Forms: My [facility], Smoking Cessation Medications and DC Order Prescriptions: New prasugrel 10 mg Tablet 10 mg PO QAM Qty: 30 0RF metoprolol succinate 25 mg tablet extended release 24 hr 25 mg PO PM Qty: 30 0RF Continued atorvastatin 40 mg Tablet 80 mg PO QAM Qty: 30 0RF aspirin 81 mg Tablet,Delayed Release (Dr/Ec) 81 mg PO QAM Qty: 30 0RF losartan 25 mg Tablet 25 mg PO QAM Qty: 30 0RF nitroglycerin [Nitrostat] 0.4 mg Tablet, Sublingual 0.4 mg sublingual Q5M PRN (Reason: chest pain) Qty: 15 0RF pantoprazole 40 mg Tablet,Delayed Release (Dr/Ec) 40 mg PO DAILY Qty: 30 0RF insulin lispro [Humalog KwikPen Insulin] 100 unit/mL insulin pen See Rx Instructions .ROUTE .COMPLEX Rx Instructions: 10u SUBCUT WITH BREAKFAST AND LUNCH, 15u SUBCUT WITH DINNER insulin glargine [Lantus Solostar U-100 Insulin] 100 unit/mL (3 mL) insulin pen 42 unit SUBCUT DIRECTED Jardiance 10 mg tablet 10 mg PO DAILY Lorene 0.75 mg/0.5 mL pen injector 0.75 mg SUBCUT WK trazodone 50 mg tablet 50 mg PO HS PRN (Reason: Sleep) albuterol sulfate [Ventolin HFA] 90 mcg/actuation HFA aerosol inhaler 2 puff INHALATION Q6H PRN (Reason: sob) quetiapine 50 mg tablet 50 - 100 mg PO HS PRN (Reason: Other) Discontinued clopidogrel 75 mg Tablet 75 mg PO QAM Qty: 30 0RF famotidine 20 mg tablet 20 mg PO BID PRN (Reason: Other) Discharge Orders: Discharge Order (Routine); Ordered 07/01/24 Ordered By: Marciano Becker Admission Data Admit Date/Time: 06/29/24 18:41 Attending Provider: Marciano Becker Admit Provider: Mao Robert Primary Care Provider: Melody Guthrie Other Providers: Jeimy Lee; Chuy Garcia th; Weston Arredondo; Carl Stephens Other Interventions: Discharge Summary Assessment (RN) Last Done: 07/01/24 13:44 Hospital Stay Data Consultations 06/29/24 20:12 Consult Machine Compositor Stat 06/29/24 21:11 Consult Machine Compositor Routine Procedures Performed Operation Date: 06/29/24 18:30 Actual Procedures p Cineradiography w/Routine Exam - Weston Arredondo MD s Aspiration/PCI w/TREE for Stemi - Weston Arredondo MD s IVUS Coronary Single Vessel - Weston Arredondo MD Diagnostic Imagining Performed 06/29/24 18:30 CL Cath Imgs for PACS use only Stat 06/29/24 20:30 CL IVUS Coronary Single Vessel Stat Pending Results Patient Have Any Pending Studies at Discharge: No Discharge Instructions Given to Patient (Per Discharging Provider) Followup with PCP in 1-2 weeks. Remember to take your Prasugrel daily. Home Care: * Take your medications exactly as directed. Don't skip doses. * Remember that recovery after a heart attack takes time. Plan to rest for at lease 4-8 weeks while you recover. Then return to normal activity when your doctor says it's okay. * Ask your doctor about joining a heart rehabilitation program. * Tell your doctor if you are feeling depressed. Feelings of sadness are common after a heart attack, but it is important that you speak to someone if you are feeling overwhelmed by these feelings. * If you are having chest pain, call 911 for an ambulance. Do NOT drive yourself to the hospital. * Ask your family members to learn CPR. * Learn to take your own blood pressure and pulse. Keep a record of your results. Ask your doctor when you should seek emergency medical attention. He or she will tell you which blood pressure reading is dangerous. Lifestyle Changes: * Maintain a healthy weight. Get help to lose any extra pounds. * Cut back on salt. * Limit canned, dried, packaged, and fast foods. * Don't add salt to your food. * Season foods with herbs instead of salt when you cook. * Break the smoking habit. Enroll in a stop-smoking program to improve your chances of success. * Limit fatty foods. * Ask your doctor about having your lipid levels checked regularly. * Build up your activity according to your doctor's recommendation. * Ask your doctor when it's okay to resume sexual activity. * Tell your doctor about any erectile dysfunction (ED) medication you are corazon ing. Some ED medications are not safe if you take certain heart medications. * Try to manage stress. Follow Up: It is important for you to keep your follow up appointments with your medical provider. Total Time Total Time Spent Total Time Spent (In Minutes): 32 Coding Level of Care Code 89732 INP/OBS DISCH >30 MIN Diagnoses STEMI (ST elevation myocardial infarction) I21.3
[2024-07-01 13:46] VITALS: BP 107/64
[2024-07-01 14:10] VITALS: PULSE 84
--- NOTE | 2024-07-01 23:36 | Cardiology Progress Note ---
Date of Service July 01, 2024 Assessment & Plan (1) CAD in [place] artery: Plan: Subacute D1 stent thrombosis 06/29/2024. Mild residual thrombus in proximal LAD adhered to ostial LCx stent Post PCI with new TREE to first diagonal stent thrombosis 06/26/2024 Moderate to severe nonculprit disease (75 % right PLB, 50% mid LAD, patent LCx into OM 3 stents) 2. Preserved LV functionanterolateral wall motion abnormality 3. Type 2 [id number] 9.1 4. Mildly dilated aortic root/ascending aorta (4.1 cm) 5. Hypertension 6. Medical adherence difficulties Chest pain free. Troponin peaked Electrically stable overnight No access site complications Blood pressure better controlled From a cardiac standpoint OK with discharge today. Continue DAPT with aspirin, prasugrel. Plan on DAPT indefinitely. -- Given Prasugrel home pack for 3 days and his pharmacy was contacted and will deliver medicine to him tomorrow. We stressed importance of taking prasugrel every day. Continue current statin Continue losartan and toprol XL Follow-up with me in 1 week. Admission and Anticipated Discharge Date Admission Date: June 29, 2024 Subjective Feeling well today. No chest pain. Ready to go home. Tele reviewed -- no arrhythmia Review of Systems 2 Review of Systems: All systems reviewed & are unremarkable except as noted in HPI & below Physical Exam Physical Exam: General: Comfortable HEENT: Sclerae anicteric Lungs: Clear to auscultation bilaterally Cardiac: Distant heart sounds, regular, no murmurs Vascular: Right radial artery access site with no hematoma. Distal pulse and sensation intact. Abdomen: Soft, nontender Extremities: Well perfused, no peripheral edema Neuro: Nonfocal Psych: Alert orient x3, normal affect and mood Results & Data Vital Signs (Past 12 Hours) Vital Signs Temp Pulse Resp BP BP Pulse Ox 07/01/24 13:44 98.4 F 78 16 107/64 108/63 96 PG Care Time/CCT Total # of Minutes Spent Total Time Spent with Patient: Total time spent is greater than 50% in coordination of care (as documented) at patient's floor/unit and/or counseling patient: Coding Level of Care Code 32942 SUB INP/OBS CARE 2/35MIN Diagnoses CAD in [place] artery I25.10
== END 2024-07-01 14:18 | disposition home health service (06) | DRG 322 ==
LOC: ED 16:40 → 1E 18:30 → SUATTDRO 18:41 → 2E 06-30 13:49